=== PATIENT | female | born 1985 | race Caucasian/White ===

== ENCOUNTER 2019-08-05 23:48 | Inpatient (IN) | payer OTHER ==
--- OUTSIDE RECORDS SUMMARY | ~2019-08-05 | XMS | Clinical Summary ---
Demographics + + + | Address | [address] | | | [place] [address] | + + + | Home Phone | | + + + | Preferred Language | Unknown | + + + | Marital Status | | + + + | Tenriism Affiliation | Unknown | + + + | Race | Unknown | + + + | Ethnic Group | Unknown | + + + Author + + + | Author | [facility] | | | and [place] | + + + | Organization | [facility] | | | and [place] | + + + | Address | Unknown | + + + | Phone | Unavailable | + + + Support + + +---------+ + | Name | Relationship | Address | Phone | + + +---------+ + | Mary Otero | NANCY | Unknown | | + + +---------+ + Care Team Providers + +------+ + | Care Can Solderer Name | Role | Phone | + +------+ + | Micheal Colon MD | PCP | | + +------+ + Allergies No Known Allergies Medications + + + +---------+------+------+-------+ | Medication | Sig | Dispensed | Refills | Star | End | Statu | | | | | | t | Date | s | | | | | | Date | | | + + + +---------+------+------+-------+ | | Take 1 tablet by | | 0 | | | Activ | | multivitamin tablet | mouth Daily. | | | | | e | + + + +---------+------+------+-------+ | levothyroxine | Take 175 mcg by | | 0 | | | Activ | | (SYNTHROID, | mouth every morning | | | | | e | | LEVOTHROID) 100 mcg | (before breakfast). | | | | | | | tablet | | | | | | | + + + +---------+------+------+-------+ | OMEPRAZOLE PO | Take 20 mg by mouth | | 0 | | | Activ | | | Daily. | | | | | e | + + + +---------+------+------+-------+ | hydrOXYzine | Take 1 capsule by | 20 | 0 | 04/1 | | Activ | | pamoate (VISTARIL) | mouth 3 times daily | capsule | | 7/20 | | e | | 25 mg capsule | as needed for Other | | | 20 | | | | | (Pain). | | | | | | + + + +---------+------+------+-------+ | Ranitidine HCl | Take 2 tablets by | | 0 | | 04/1 | Disco | | (RANITIDINE 75 PO) | mouth 2 times daily. | | | | 7/20 | ntinu | | | | | | | 20 | ed | | | | | | | | (Ther | | | | | | | | apy | | | | | | | | compl | | | | | | | | eted) | + + + +---------+------+------+-------+ | docusate sodium | Take 1-2 capsules by | 30 | 1 | 01/0 | 04/1 | Disco | | (COLACE) 100 mg | mouth Twice daily | capsule | | 2/20 | /20 | ntinu | | capsule | as needed for | | | 19 | 20 | ed | | | Constipation. | | | | | (Ther | | | | | | | | apy | | | | | | | | compl | | | | | | | | eted) | + + + +---------+------+------+-------+ | | Take 1-2 tablets by | 15 | 0 | 01/0 | 04/1 | Disco | | HYDROcodone-acetamin | mouth every 6 hours | tablet | | 2/20 | 7/20 | ntinu | | ophen (NORCO) 5-325 | as needed for Pain. | | | 19 | 20 | ed | | mg per tablet | | | | | | (Ther | | | | | | | | apy | | | | | | | | compl | | | | | | | | eted) | + + + +---------+------+------+-------+ | ibuprofen | Take 1 tablet by | 30 | 1 | 01/0 | 04/ | Disco | | (ADVIL,MOTRIN) 600 | mouth every 6 hours | tablet | | 2/20 | 7/20 | ntinu | | MG tablet | as needed for Pain. | | | 19 | 20 | ed | | | | | | | | (Ther | | | | | | | | apy | | | | | | | | compl | | | | | | | | eted) | + + + +---------+------+------+-------+ Active Problems + + + | Problem | Noted Date | + + + | (spontaneous vaginal delivery) | 03/27/2018 | + + + | Hypothyroidism | 03/26/2018 | + + + | Term - PARESH 03/27/2018 | 03/26/2018 | + + + | Rheumatoid arthritis | 01/08/2014 | + + + + + | Overview: Controlled by Diet & Lifestyle. Not currently on | | medications when (as of 2017)H/O Etanercept use | + + + + + | Prolonged latent phase of labor | 07/03/2013 | + + + + + + + | | Estimated Date of Delivery | Comments | + + + + | Yes | 08/11/2019 | Based on Other Basis | + + + + Encounters +--------+ + + + + | Date | Type | Specialty | Care Team | Description | +--------+ + + + + | 07/10/ | Hospital | Obstetrics and | Susan Simental | | | 2019 | Encounter | Gynecology | DO Latonya | | +--------+ + + + + from Last 3 Months Social History + +-------+ +--------+------+ | Tobacco Use | Types | Packs/Day | Years | Date | | | | | Used | | + +-------+ +--------+------+ | Never Smoker | | | | | + +-------+ +--------+------+ + +---+---+---+ | Smokeless Tobacco: | | | | | Never Used | | | | + +---+---+---+ + + +---------+ + | Alcohol Use | Drinks/Week | oz/Week | Comments | + + +---------+ + | No | | | | + + +---------+ + + + + + | | Estimated Date of Delivery | Comments | + + + + | Yes | 08/11/2019 | Based on Other Basis | + + + + + + + | Sex Assigned at | Date Recorded | | | | + + + | Not on file | | + + + + + + + | Job Start Date | Occupation | Industry | + + + + | Not on file | Not on file | Not on file | + + + + + + + + | Travel History | Travel Start | Travel End | + + + + + + | No recent travel history available. | + + Last Filed Vital Signs + + + + + | Vital Sign | Reading | Time Taken | Comments | + + + + + | Blood Pressure | 124/85 | 07/11/2019 12:43 PM | | | | | PDT | | + + + + + | Pulse | 110 | 07/11/2019 12:43 PM | | | | | PDT | | + + + + + | Temperature | 36.5 C (97.7 F) | 07/11/2019 12:43 PM | | | | | PDT | | + + + + + | Respiratory Rate | 18 | 07/11/2019 12:43 PM | | | | | PDT | | + + + + + | Oxygen Saturation | 100% | 07/11/2019 12:43 PM | | | | | PDT | | + + + + + | Inhaled Oxygen | - | - | | | Concentration | | | | + + + + + | Weight | 86.2 kg (190 lb) | 03/26/2018 3:13 AM | | | | | PST | | + + + + + | Height | 162.6 cm (5' 4") | 03/26/2018 3:13 AM | | | | | PST | | + + + + + | Body Mass Index | 32.61 | 03/26/2018 3:13 AM | | | | | PST | | + + + + + Plan of Treatment + + + + + | Health Maintenance | Due Date | Last Done | Comments | + + + + + | Vaccine: | | | | | Dtap/Tdap/Td (1 - | 5 | | | | Tdap) | | | | + + + + + | Cervical Cancer | | | | | Screening (Pap) | 4 | | | + + + + + | Vaccine: Influenza | | | | | (Season Ended) | 0 | | | + + + + + Procedures + +--------+ + + + | Procedure Name | Priori | Date/Time | Associated Diagnosis | Comments | | | ty | | | | + +--------+ + + + | URINALYSIS | STAT | 07/11/2019 | | Results for this | | | | 12:48 PM | | procedure are in the | | | | PDT | | results section. | + +--------+ + + + from Last 3 Months Results Urinalysis (07/11/2019 12:48 PM PDT) + + + + + + | Component | Value | Ref Range | Performed | Pathologist | | | | | At | Signature | + + + + + + | Color, | Yellow | Light Yellow, | [facility] | | | Urine | | Yellow, Straw | [facility] | | | | | | [facility] | | | | | | [facility] - | | | | | | LABORATORY | | + + + + + + | Clarity | Clear | Clear | [facility] | | | | | | [facility] | | | | | | MED[facility] | | | | | | C[facility] - | | | | | | LABORATORY | | + + + + + + | pH, Urine | 6.0 | 5.0 - 8.0 | [facility] | | | | | | [facility] | | | | | | [facility] | | | | | | C[facility] - | | | | | | LABORATORY | | + + + + + + | Specific | 1.006 | 1.001 - 1.030 | [facility] | | | [place], | | | [facility] | | | Urine | | | MEDICAL | | | | | | CENTER - | | | | | | LABORATORY | | + + + + + + | Protein, | Negative | Negative | [facility] | | | Urine | | | [facility] | | | | | | MEDICAL | | | | | | CENTER - | | | | | | LABORATORY | | + + + + + + | Blood, | Negative | Negative | [facility] | | | Urine | | | [facility] | | | | | | MEDICAL | | | | | | CENTER - | | | | | | LABORATORY | | + + + + + + | Glucose, | Negative | Negative | [facility] | | | Urine | | | [facility] | | | | | | MEDICAL | | | | | | CENTER - | | | | | | LABORATORY | | + + + + + + | Ketones, | Trace (A) | Negative | [facility] | | | Urine | | | [facility] | | | | | | MEDICAL | | | | | | CENTER - | | | | | | LABORATORY | | + + + + + + | Bilirubin, | Negative | Negative | [facility] | | | Urine | | | [facility] | | | | | | MEDICAL | | | | | | CENTER - | | | | | | LABORATORY | | + + + + + + | Nitrite, | Negative | Negative | [facility] | | | Urine | | | [facility] | | | | | | MED[facility] | | | | | | CENTER - | | | | | | LABORATORY | | + + + + + + | Leukocyte | Negative | Negative | [facility] | | | Esterase, | | | [facility] | | | Urine | | | MEDICAL | | | | | | CENTER - | | | | | | LABORATORY | | + + + + + + | Urobilinoge | Negative | 0.2 mg/dL, 1.0 | [facility] | | | n, Urine | | mg/dL, Negative | [facility] | | | | | | MEDICAL | | | | | | CENTER - | | | | | | LABORATORY | | + + + + + + + + | Specimen | + + | Urine - Urine | | specimen obtained by | | clean catch | | procedure (specimen) | + + + + + + + | Performing | Address | City/State/Zipcode | Phone Number | | Organization | | | | + + + + + | [facility] | [address] | [place] | [phone] | | [facility] | | [address] | | | - LABORATORY | | | | + + + + + from Last 3 Months Insurance + +--------+ +--------+ +---------+------+ | Payer | Benefi | Subscriber | Effect | Phone | Address | Type | | | t Plan | ID | nevni | | | | | | / | | Dates | | | | | | Group | | | | | | + +--------+ +--------+ +---------+------+ | [facility] | PHP | [id number] | 03/26/19 | [phone] | | PPO | | PLAN | PERSON | | 20-Pre | 5 | | | | | AL | | sent | | | | | | OPEN | | | | | | | | OPTION | | | | | | + +--------+ +--------+ +---------+------+ + +--------+ +--------+ + + | Guarantor Name | Accoun | Relation to | Date | Phone | Billing Address | | | t Type | Patient | of | | | | | | | | | | + +--------+ +--------+ + + | Yosef Otero | Person | Self | [birth year] | [address] | | | al/Fam | | 1986 | [phone] | [place] [address] | | | silverio | | | 5 (Home) | | + +--------+ +--------+ + + Advance Directives + + + + + | Type | Date Recorded | Patient | Explanation | | | | New Accounts Clerk | | + + + + + | Power of | | | | | Pulverizer Mill Operator | | | | + + + + + | Advance | 03/27/2018 10:59 | | | | Directive | AM | | | + + + + + + + + + + | Code Status | Date | Date | Comments | | | Activated | Inactivated | | + + + + + | Full Code | 03/26/2018 | 03/26/2018 | | | | 8:57 AM | 6:37 PM | | + + + + +
--- OUTSIDE RECORDS SUMMARY | ~2019-08-05 | XMS | Encounter Summary ---
Demographics + + + | Address | [address] | | | [place] [address] | + + + | Home Phone | | + + + | Preferred Language | Unknown | + + + | Marital Status | | + + + | Baptist Affiliation | Unknown | + + + | Race | Unknown | + + + | Ethnic Group | Unknown | + + + Author + + + | Author | [facility] | | | and [place] | + + + | Organization | [facility] | | | and [...] Team Providers + +------+ + | Care Service Unit Operator Oil Well Name | Role | Phone | + +------+ + | Kamlesh Lopez MD | PCP | | + +------+ + Reason for Visit Auth/Cert +--------+--------+ + + + + | Status | Reason | Specialty | Diagnoses / | Referred By | Referred To | | | | | Procedures | Contact | Contact | +--------+--------+ + + + + | Closed | | | | | | +--------+--------+ + + + + Encounter Details +--------+ + + + + | Date | Type | Department | Care Team | Description | +--------+ + + + + | 07/03/ | Anesthesia | [facility] | Mayito Scott | | | 2013 | Event | [facility] | MD Neil [address] | | | | | [address] | [facility] | | | | | [place], | [place] [address] | | | | | [place] [address] | [phone] | | | | | [phone] | | | +--------+ + + + + Anesthesia Record + + + + + | Procedure Name | Responsible | Anesthesia Start | Anesthesia Stop Time | | | Anesthesiologist | Time | | + + + + + | labor epidural | Tor Neil Scott, | 07/03/13 0733 | 07/03/13 1351 | | | MD | | | + + + + + +----+---+ + + | Da | T | Event | Comment | | te | i | | | | | m | | | | | e | | | +----+---+ + + | 04 | 0 | | | | /1 | 7 | | | | 0/ | 3 | | | | 20 | 3 | | | | 14 | | | | +----+---+ + + | | 0 | An Start | Reassessment prior to anesthesia induction/procedure. | | | 7 | | | | | 3 | | | | | 3 | | | +----+---+ + + | | 0 | Epi/spinal | | | | 7 | Stop | | | | 4 | | | | | 2 | | | +----+---+ + + | | 0 | Epidural | | | | 7 | Bolus | | | | 4 | | | | | 3 | | | +----+---+ + + | | 0 | Epidural | | | | 7 | Infusion | | | | 4 | Started | | | | 5 | | | +----+---+ + + | | 0 | Out of OR | | | | 7 | Device Stop | | | | 4 | | | | | 6 | | | +----+---+ + + | | 1 | Quick Note | Called by RN that pt had two hours of good pain control, over | | | 2 | | past two hours has been having increasing bilat pain since | | | 1 | | pitocin started | | | 8 | | | +----+---+ + + | | 1 | Baby Deliv | | | | 3 | | | | | 5 | | | | | 1 | | | +----+---+ + + | | 1 | An Stop | Patient handed off to recovery nurse. | | | 5 | | | | | 1 | | | +----+---+ + + +------+ | Meds | +------+ + +---------+ | Name | Total | + +---------+ | lidocaine 1.5%-EPINEPHrine | 3 mL | | 1:200,000 (PF) | | + +---------+ | lidocaine 2% (Epidural) | 5 mL | + +---------+ | fentaNYL (Epidural) | 100 mcg | + +---------+ | bupivacaine 0.25% + epi 1:200k | 5 mL | | (Epidural) | | + +---------+ + + | No agents on file. | + + + + | No blood administrations on file. | + + +--------+ + + + | Type | Details | Placement | Removal | +--------+ + + + | [READ | 07/03/13714; expected removal | 07/03/13714 by | 07/04/13 08 by Kacey | | ONLY] | post discharge; 07/04/13; 799 | Shwetha Murray RN | Brigid Mckenzie RN | | | | | | | Periph | | | | | eral | | | | | IV - | | | | | Single | | | | | Lumen | | | | | | | | | +--------+ + + + | Epidur | 07/03/13; 0742; tip intact; | 07/03/13 0742 by Tor | 07/03/13 1411 by | | al/Spi | 07/03/13; 1411 | Neil Scott MD | [facility] | | nal | | | | +--------+ + + + | Urethr | 07/03/13; 0845; other (see | 07/03/13 0845 by | 07/03/13 1339 by | | al | comments) (epidural); indwelling | [facility] | [facility] | | Cathet | double lumen catheter; 100% | | | | er | silicone; 16; 1; 10; 10; none; | | | | | urethral catheter removed; short | | | | | term use; 07/03/13; 1339 | | | +--------+ + + + documented in this encounter Social History + +-------+ +--------+------+ | Tobacco Use | Types | Packs/Day | Years | Date | | | | | Used | | + +-------+ +--------+------+ | Never Assessed | | | | | + +-------+ +--------+------+ + + + | Sex Assigned at [...] recent travel history available. | + + documented as of this encounter Last Filed Vital Signs + +---------+ + + | Vital Sign | Reading | Time Taken | Comments | + +---------+ + + | Blood Pressure | 120/56 | 07/03/2013 7:45 AM | | | | | PDT | | + +---------+ + + | Pulse | - | - | | + +---------+ + + | Temperature | - | - | | + +---------+ + + | Respiratory Rate | - | - | | + +---------+ + + | Oxygen Saturation | 100% | 07/03/2013 7:44 AM | | | | | PDT | | + +---------+ + + | Inhaled Oxygen | - | - | | | Concentration | | | | + +---------+ + + | Weight | - | - | | + +---------+ + + | Height | - | - | | + +---------+ + + | Body Mass Index | - | - | | + +---------+ + + documented in this encounter Plan of Treatment Not on filedocumented as of this encounter Procedures + +--------+ + + + | Procedure Name | Priori | Date/Time | Associated Diagnosis | Comments | | | ty | | | | + +--------+ + + + | ANESTHESIA BLOCK | Routin | 07/03/2013 | | Results for this | | | e | 12:50 PM | | procedure are in the | | | | PDT | | results section. | + +--------+ + + + documented in this encounter Results ANESTHESIA BLOCK (07/03/2013 12:50 PM PDT) + + + | Narrative | Performed At | + + + | Mayito Scott MD 07/03/2013 12:50 Procedure Note | | | Anesthesia Block Procedure: Epidural, L3-4, Approach: Midline | | | Technique: Catheter, Incremental Injection Incremental Injection | | | Volume: 5. Indication: Patient in Labor. Block requested by | | | surgeon or patient. Pre-procedure Events: Patient Identified, | | | Pre-op Evaluation Completed, Airway Assessed, Risks and Benefits | | | Discussed, Procedure Consent Obtained and Timeout Performed. | | | Patient Positioning: Sitting Prep: ChloraPrep used. Skin Local | | | Anesthetic: Lidocaine 1% Needle: 17 G Tuohy (9 cm). Loss of | | | resistance depth: 6.5 cm ELSA - Saline Catheter depth at skin: 10.5 cm | | | Ease: Easy Attempts: 1 Dressings: Sterile Dressing | | | Note: Negative Blood Aspirated, CSF Return, Paresthesia and Test | | | Dose. Electronically signed by: Mayito Scott MD 07/03/2013 12:49 | | | | | + + + + + | Procedure Note | + + | Mayito Scott MD - 07/03/2013 12:49 PM PDT Procedure NoteAnesthesia | | BlockProcedure: Epidural, L3-4, Approach: Midline Technique: Catheter, Incremental | | Injection Incremental Injection Volume: 5. Indication: Patient in Labor. Block | | requested by surgeon or patient. Pre-procedure Events: Patient Identified, Pre-op | | Evaluation Completed, Airway Assessed, Risks and Benefits Discussed, Procedure Consent | | Obtained and Timeout Performed.Patient Positioning: SittingPrep: ChloraPrep used. Skin | | Local Anesthetic: Lidocaine 1%Needle: 17 G Tuohy (9 cm). Loss of resistance depth: 6.5 | | cm ELSA - SalineCatheter depth at skin: 10.5 cmEase: EasyAttempts: 1 Dressings: | | Sterile Dressing Note: Negative Blood Aspirated, CSF Return, Paresthesia and Test Dose. | | Electronically signed by: Mayito Scott MD 07/03/2013 12:49 | |Needle: 17 G Tuohy (9 cm). | |Loss of resistance depth: 6.5 cm ELSA - Saline | |Catheter depth at skin: 10.5 cm | | | |Ease: Easy | |Attempts: 1 | |Dressings: Sterile Dressing | |Note: Negative Blood Aspirated, CSF Return, Paresthesia and Test Dose. | |Electronically signed by: Mayito Scott MD 07/03/2013 12:49 | + + documented in this encounter Visit Diagnoses Not on filedocumented in this encounter Administered Medications + +--------+ +-------+------+------+ | Medication Order | MAR | Action | Dose | Rate | Site | | | Action | Date | | | | + +--------+ +-------+------+------+ | bupivacaine 0.25%-EPINEPHrine | Given | 07/04/19 | 5 mLs | | | | 1:200,000 (PF) injection | | 14 12:15 | | | | | EPIDURAL, PRN, Starting Lisa | | PM PDT | | | | | 07/03/13 at 1215, Anesthesia | | | | | | | Intra-op | | | | | | + +--------+ +-------+------+------+ +---+---+ | | | +---+---+ + +-------+ +---------+---+---+ | fentaNYL injection EPIDURAL, | Given | 07/04/19 | 100 mcg | | | | PRN, Pain, Starting Lisa 07/03/13 | | 14 12:16 | | | | | at 1216, Anesthesia Intra-op | | PM PDT | | | | + +-------+ +---------+---+---+ +---+---+ | | | +---+---+ + +-------+ +-------+---+---+ | lidocaine (PF) 2% injection | Given | 07/04/19 | 5 mLs | | | | EPIDURAL, PRN, Starting Lisa | | 14 7:43 | | | | | 07/03/13 at 0743, Anesthesia | | AM PDT | | | | | Intra-op | | | | | | + +-------+ +-------+---+---+ +---+---+ | | | +---+---+ + +-------+ +-------+---+---+ | lidocaine 1.5%-EPINEPHrine | Given | 07/04/19 | 3 mLs | | | | 1:200,000 (PF) injection | | 14 7:42 | | | | | EPIDURAL, PRN, Starting Lisa | | AM PDT | | | | | 07/03/13 at 0742, Anesthesia | | | | | | | Intra-op | | | | | | + +-------+ +-------+---+---+ +---+---+ | | | +---+---+ documented in this encounter"
--- OUTSIDE RECORDS SUMMARY | ~2019-08-05 | XMS | Encounter Summary ---
Demographics + + + | Address | [address] | | | [place] [address] | + + + | Home Phone | | + + + | Preferred Language | Unknown | + + + | Marital Status | | + + + | Christianity Affiliation | Unknown | + + + | Race | Unknown | + + + | Ethnic Group | Unknown | + + + Author + + + | Author | [facility] | | | and [place] | + + + | Organization | [facility] | | | and [...] Team Providers + +------+ + | Care Automatic Hemmer Name | Role | Phone | + +------+ + | Micheal Colon MD | PCP | | + +------+ + Reason for Visit + + + | Reason | Comments | + + + | Contractions | | + + + Encounter Details +--------+ + + + + | Date | Type | Department | Care Team | Description | +--------+ + + + + | 04/17/ | Hospital | [facility] | Susan Simental | | | 2020 | Encounter | [facility] | Latonya, DO [address] | | | | [address] | | | | | [place], | [place] [address] | | | | | [place] [address] | [phone] | | | | | [phone] | | | +--------+ + + + + Social History + +-------+ +--------+------+ | Tobacco [...] + + +---------+ + + + + | Sex Assigned [...] this encounter Last Filed Vital Signs + + + [...] + + + + | Weight | - | - | | + + + + + | Height | - | - | | + + + + + | Body Mass Index | - | - | | + + + + + documented in this encounter Discharge Instructions Instructions Jacinda Bartholomew RN - 07/11/2019Discharge Education for the Undelivered Patient You can use the following list as a guide to help you know when to call your provider or re turn to the hospital. Labor Contractions (labor pains) every 5 minutes or less, lasting 60 seconds or more Contractions become stronger Bag of molina broken or leaking fluid from the vagina Labor (more than 3 weeks before your due date) Contractions (labor pains) that occur more than 4 times per hour (every 15 minutes), la sting 30 seconds or more, for 2 hours Backache or pelvic pressure Bag of molina broken or leaking fluid from the vagina Movement Counting Starting at 7 months (28 weeks) Decreased (less than 10 movements in 2 hours) Other Reasons to Call Constant headache Changes in vision Sudden increase in swelling, especially rapid weight gain chiefly in your face and/ or hands Constant abdominal (belly) pain Bright red vaginal bleeding or passing enough clots to need a pad Temperature over 100.4 (38 C) documented in this encounter Medications at Time of Discharge + + + +---------+ + + | Medication | Sig | Dispensed | Refills | Start | End Date | | | | | | Date | | + + + +---------+ + + | hydrOXYzine | Take 1 capsule by | 20 | 0 | 07/11/19 | | | pamoate (VISTARIL) | mouth 3 times daily | capsule | | 20 | | | 25 mg capsule | as needed for Other | | | | | | | (Pain). | | | | | + + + +---------+ + + | levothyroxine | Take 175 mcg by | | 0 | | | | (SYNTHROID, | mouth every morning | | | | | | LEVOTHROID) 100 mcg | (before breakfast). | | | | | | tablet | | | | | | + + + +---------+ + + | OMEPRAZOLE PO | Take 20 mg by mouth | | 0 | | | | | Daily. | | | | | + + + +---------+ + + | | Take 1 tablet by | | 0 | | | | multivitamin tablet | mouth Daily. | | | | | + + + +---------+ + + documented as of this encounter Progress Notes Chong Campbell MD - 07/11/2019 2:31 PM PDT Labor & Delivery Triage Note Yosef Otero is a 33 y.o. OB History 5 Para 3 Term 2 AB 1 Living 3 SAB 1 TAB Ectopic Molar Multiple 0 Live Births 2 at 35w4d Reason for evaluation: contractions Subjective: Patient reports intermittent contractions. Mild to moderate intensity. Reports several in an hour then reduces to only couple in an hour. Patient lives far away however and reports no contractions like this before. Normal otherwise. No leaking bleeding, active fetus. No symptoms of infection. Objective Vitals: 07/11/19 1243 Pulse: 110 Resp: 18 Temp: 36.5 C (97.7 F) General: no acute distress Abdomen: gravid non-tender FHR Assessment Baseline: 130 Variability: moderate Accels: present Decels: absent CAT: 1 Doyline: no regular contractions noted on toco VAGINAL Exam Dilation: /-3 UA negative. Assessment: 33 y.o. at 35w4d Reported contractions. No evidence of active or labor at this time Reassuring status Given she lives far from hospital will observe for 2 hours. If still no evidence of labor will DC home with precautions. Electronically Signed by: Chong Campbell MD MD 07/11/2019 2:31 PM documen susana in this encounter Plan of Treatment Not [...] + + documented in this encounter Results Urinalysis (07/11/2019 12:48 PM PDT) + [...] - 1.030 | [facility] | | | [place], | | | [facility] | | [...] | | | Urine | | | [facility] | | | | | | MEDICAL | | | | | | CENTER - | | | | | | LABORATORY | | + + + + + + | Leukocyte | Negative | Negative | [facility] | | | Esterase, | | | [facility] | | | Urine | | | MEDICAL | | | | | | CENTER - | | | | | | LABORATORY | | + + + + + + | Urobilinoge | Negative | 0.2 mg/dL, 1.0 | [facility] | | | n, Urine | | mg/dL, Negative | [facility] | | | | | | [...] [address] | [place] | [phone] | | [facility] | | [address] | | | - LABORATORY | | | | + + + + + documented in this encounter Visit Diagnoses Not on filedocumented in this encounter"
--- OUTSIDE RECORDS SUMMARY | ~2019-08-05 | XMS | Encounter Summary ---
Demographics + + + | Address | [address] | | | [place] [address] | + + + | Home Phone | | + + + | Preferred Language | Unknown | + + + | Marital Status | | + + + | Latter Day Affiliation | Unknown | + + + | Race | Unknown | + + + | Ethnic Group | Unknown | + + + Author + + + | Author | [facility] | | | and [place] | + + + | Organization | [facility] | | | [...] Team Providers + +------+ + | Care Wireless Sales Associate Name | Role | Phone | + +------+ + | Micheal Colon MD | PCP | | + +------+ + Reason for Referral Evaluate & Treat (Routine) +--------+ + + + + + | Status | Reason | Specialty | Diagnoses / | Referred By | Referred To | | | | | Procedures | Contact | Contact | +--------+ + + + + + | Closed | Specialty | | Diagnoses | Celena, | | | | Services | Services | | DO Bri | | | | Required | | (spontaneous | [address] | | | | | | vaginal | [address] [place] | | | | | | delivery) | [place], [place] | | | | | | Hypothyroidi | [address] | | | | | | sm, | Phone: | | | | | | unspecified | [phone] | | | | | | type | Fax: | | | | | | | [phone] | | +--------+ + + + + + Reason for Visit + + + | Reason | Comments | + + + | Contractions | | + + + Auth/Cert +--------+--------+ + + + + | Status | Reason | Specialty | Diagnoses / | Referred By | Referred To | | | | | Procedures | Contact | Contact | +--------+--------+ + + + + | | | | | | | +--------+--------+ + + + + Encounter Details +--------+ + + + + | Date | Type | Department | Care Team | Description | +--------+ + + + + | 03/26/ | Hospital | [facility] | Chong Campbell | (spontaneous | | 2019 - | Encounter | [facility] | Paulino May MD | vaginal delivery) | | | | [address] | [address] | (Primary Dx); | | 03/27/ | | [place] | [place] | Hypothyroidism, | | 2019 | | [id number] | [id number] | unspecified type | | | | [phone] | | | | | | | Susan Simental | | | | | | DO Latonya [address] | | | | | | [place] | | | | | | [address] | | | | | | | [...] + + + | Blood Pressure | 109/67 | 03/27/2018 4:50 PM | | | | | PST | | + + + + + | Pulse | 86 | 03/27/2018 4:50 PM | | | | | PST | | + + + + + | Temperature | 36.9 C (98.4 F) | 03/27/2018 4:50 PM | | | | | PST | | + + + + + | Respiratory Rate | 18 | 03/27/2018 4:50 PM | | | | | PST | | + + + + + | Oxygen Saturation | 98% | 03/27/2018 4:50 PM | | | | | PST | [...] + + documented in this encounter Discharge Summaries Bri Dallas DO - 03/27/2018 8:16 AM PSTFormatting of this note might be different fro m the original. DISCHARGE SUMMARY-OBSTETRICS Date of Admission: 03/26/2018 Date of Discharge: 03/27/2018 ATTENDING CLINICIAN: Bri Dallas DO PRIMARY STATION EXAMINER: Micheal Colon MD HISTORY OF PRESENT ILLNESS 32 y.o. 39w6d presented in early active labor and required augmentation of labor. HOSPITAL COURSE: Yosef Otero is a 32 y.o.-year-old, now female (Estimated Date of Delivery: 03/27/18) who had a delivered by Vaginal, Spontaneous Delivery . At 03/26/2018 1732 Yosef ore a living female 3.708 kg (8 lb 2.8 oz) infant, . scores were 8 /9 at one and five minutes respectively. Estimated Blood loss was 50mL Her labor course was uncomplicated. Her course was unremarkable. Pain was well controlled and she was ambulating we ll without any difficulty. She had normal bowel an urinary function. Her vital signs were stable and afebrile. Nursing was going well. She was discharged home in stable condition . She was given written post operative instructions in regards to her activity level and hotl itations. DISPOSITION: home CONDITION UPON DISCHARGE: stable DISCHARGE MEDICATIONS: Discharge Medications New Medications Details docusate sodium 100 mg capsule Take 1-2 capsules by mouth Twice daily as needed for Constipation. aka: COLACE HYDROcodone-acetaminophen 5-325 mg per tablet Take 1-2 tablets by mouth every 6 hours as needed for Pain. aka: NORCO ibuprofen 600 MG tablet Take 1 tablet by mouth every 6 hours as needed for Pain. aka: ADVIL,MOTRIN Unchanged Medications Details levothyroxine 100 mcg tablet Take 175 mcg by mouth every morning (before breakfast). aka: SYNTHROID 27-0.8 mg multivitamin tablet Take 1 tablet by mouth Daily. RANITIDINE 75 PO Take 2 tablets by mouth 2 times daily. There is no immunization history for the selected administration types [facility] FOLLOWUP: 6 weeks PRECAUTIONS: Pelvic rest for 6 weeks DIET: Regular Electronically Signed by: Bri Dallas DO 03/27/2018 8:16 documented in this en counter Discharge Instructions Instructions Bri Dallas DO - 03/27/2018Formatting of this note might be different fro m the original. After a Vaginal After having a baby, your body may be very tired. It can take time to recover from a vagina l delivery. You may stay in the hospital or center from 1 to 4 days.In some cases, y ou may be able to go home the same day. Right after the delivery Your temperature and blood pressure will be taken until they are stable. A nurse or other h ealthcare provider will observe you as you rest. You may have afterbirth pains. These are cr amps caused by the uterus shrinking. Sanitary pads are used to soak up the discharge of the uterine lining. To make sure that you aren t bleeding too much, the pad will be checked. A nd the firmness of your uterus will be checked. To do this, a nurse will gently push down on your stomach. If you had anesthesia, you ll be watched closely until you can feel and mov e your toes. If you have perineal pain (pain between the vagina and anus), an ice pack can h elp. care While still in the hospital or center, you ll learn how to hold and feed your baby. You willalso be given instructions on how to care for your baby. This includes bathing an d feeding. Preparing to go home You may be anxious to go home as soon as possible. Before you and your baby go home, a [facility] will check to be sure you are healthy enough to take care of your baby and y ourself. You re ready to go home when: You can walk to the bathroom and use the bathroom without help. You can eat solid food and swallow pills (if needed). You have no sign of infection or other health problems, including fever. You have adequate pain control. Your bleeding isn't excessive. You are able to care for your and are emotionally stable. Before leaving the hospital or center, you ll be given written instructions for rand e self-care after vaginal delivery. Be sure to follow these instructions carefully. If you h ave questions or concerns, talk about them now. If you have stitches You may have received stitches in the skin near your vagina. The stitches might have closed an episiotomy (an incision that enlarges the opening of the vagina). Or you may have needed stitches to repair torn skin. Either way, your stitches should dissolve within weeks. Until then, you can help reduce discomfort, aid healing, and reduce your risk of infection by john ping the stitches clean. These tips can help: Gently wipe from front to back after you urinate or have a bowel movement. After wiping, spray warm water on the area. Or you can have a sitz bath. This means sitt ing in a tub with a few inches of water in it. Then pat the area dry or use a hairdryer on a cool setting. Do not use soap or any solution except water on the area. You can take a shower unless told not to. Change sanitary pads at least every [address] cold or heat packs on the area as directed by your healthcare providers or nurses. Keep a thin towel between the pack and your skin. Sit on firm seats so the stitches pull less. follow-up Schedule a follow-up exam with your healthcare provider for about 6 weeks after d cat. During this exam, your uterus and vaginal area will be checked. Contact your health care provider if you think you or your baby are having any problems. When to call your healthcare provider Call your healthcare provider right away if you have: A fever of 100.4F (38.0C) or higher Bleeding that needs a new sanitary pad after an hour, or large blood clots Pain in your vagina that gets worse and isn't relieved with medicine Swelling, discharge, or increased pain from vaginal tear or episiotomy Burning, pain, red streaks, or lumpy areas in your breasts that may be accompanied by fl u-like symptoms Cracks, blisters, or blood on your nipples Burning or pain when you urinate Nausea or vomiting Dizziness or fainting Feelings of extreme sadness or anxiety, or a feeling that you don t want to be with yo ur baby Belly pain that isn t relieved with medicine Vaginal discharge that has a bad odor No bowel movement for 5 days Painful urination, or inability to control urination Redness, warmth, or pain in the lower leg Chest pain Date Last Reviewed: 02/23/201719992449-5076 [employer] [place]. [address] [place] [address], [place] [address]. All righ ts reserved. This information is not intended as a substitute for professional medical care. Always follow your healthcare professional's instructions. documented in this encounter Medications at Time [...] + + + +---------+ + + | docusate sodium | Take 1-2 capsules by | 30 | 1 | 03/27/19 | | | (COLACE) 100 mg | mouth Twice daily | capsule | | 19 | 0 | | capsule | as needed for | | | | | | | Constipation. | | | | | + + + +---------+ + + | | Take 1-2 tablets by | 15 | 0 | 03/27/19 | | | HYDROcodone-acetamin | mouth every 6 hours | tablet | | 19 | 0 | | ophen (NORCO) 5-325 | as needed for Pain. | | | | | | mg per tablet | | | | | | + + + +---------+ + + | ibuprofen | Take 1 tablet by | 30 | 1 | 03/27/19 | | | (ADVIL,MOTRIN) 600 | mouth every 6 hours | tablet | | 19 | 0 | | MG tablet | as needed for Pain. | | | | | + + + +---------+ + + | Ranitidine HCl | Take 2 tablets by | | 0 | | | | (RANITIDINE 75 PO) | mouth 2 times daily. | | | | 0 | + + + +---------+ + + documented as of this encounter Progress Notes Bri Dallas DO - 03/27/2018 8:17 AM PSTObstetrics Progress Note Subjective: Patient doing well without any concerns. She did have some cramping last night that was si gnificant and felt like was not covered with her Motrin dose after about 3 hours. She recei tyshawn one dose of [place] with good pain control since that time. States lochia is very mild an d cramping is well controlled if she stays on the dose of Motrin as scheduled. She is tolera ting PO diet without nausea or vomiting and voiding without pain or difficulty. : well with good latch Ambulating: Without any difficulty or dizziness Patient requests discharge home Maternal VS's: BP: 97/63 Pulse: 82 Temp: 36.9 C (98.4 F) Exam: General: No acute distress, baby at bedside Abdomen: Soft, non-tender, non-distended Fundus: Firm, below the umbilicus 2 finger breadths, no fundal tenderness Extremities: No calf tenderness, appropriate edema AssesmentPlan: Day #1 s/p normal augmented vaginal delivery recovering well stable for discharge Will send her home with a few [place] given her extra cramping symtpoms RH+/rubella immune d/c home with instructions and follow-up scheduled Hypothyroidism Continue Levothyroxine 175mcg daily Electronically Signed by: Bri Dallas DO 03/27/2018 8:18 Bri Ramos DO - 03/26/2018 1:30 PM PST Labor Progress Note Subjective: Patient comfortable with epidural in place. She is starting to feel some of h er contractions getting stronger. All midline pressure with contractions Maternal VS's: BP: 113/59, HR 87 FHR Assessment FHR: 130, moderate variability. No decels, positive accerlerations Uterine Activity (Last assessment) Method: TOCO (external toco transducer); Every 3-4 minutes, difficult to trace Vaginal Exam (Last assessment) SVE: Assessment/Plan: 32 y.o. 39w6d Epidural in place now, heart rate tracing category 1 AROM with clear fluid at 1210 Pitocin running, continue to titrate to maternal wellbeing. Anticipate normal spontaneous vaginal delivery Hypothyroidism Continue Levothyroxine 175mcg while inpatient Electronically Signed by: Bri Dallas DO 03/26/2018 13:30 Bri Ramos DO - 03/26/2018 12:12 PM PST Labor Progress Note Subjective: In room to discuss AROM with patient. Risks include but not limited to prolap se of umbilical cord or hand presentation, malpresentation or asynclitic presentation, small risk of infection, risk of scratch to head. Patient verbalized understanding and wis hes to proceed. AROM performed without complication with return of a good amount of clear a mniotic fluid. Maternal VS's: BP 130/64 Temp: 36.6 C (97.9 F) FHR Assessment FHR: 145, moderate variability. No decels, positive accerlerations Uterine Activity (Last assessment) Method: TOCO (external toco transducer); Every 3-4 minutes Vaginal Exam (Last assessment) SVE: /0 Assessment/Plan: 32 y.o. 39w6d Epidural in place now, heart rate tracing category 1 AROM with clear fluid at 1210 Plan on starting low dose pitocin, titrate to maternal wellbeing Anticipate normal spontaneous vaginal delivery Hypothyroidism Continue Levothyroxine 175mcg while inpatient Electronically Signed by: Bri Dallas DO 03/26/2018 12:12 Bri Ramos DO - 03/26/2018 11:14 AM PST Labor Progress Note Subjective: Patient comfortable with epidural. Called by nursing staff as fetus had a lat e deceleration of 3 minutes after placement of her epidural and patient was severely hypoten sive followed by a 1 minute deceleration. She has now received two doses of ephedrine. Fet al heart rate tracing now again category 1. Patient had intrauterine resuscitative efforts performed including oxygen supplementation, IV fluid bolus, and was moved to her left side. Maternal VS's: BP 130/64 Temp: 36.6 C (97.9 F) FHR Assessment FHR: 150, now after ephedrine dose is 170's, moderate variability. Uterine Activity (Last assessment) Method: TOCO (external toco transducer); Every 5-7 minutes Vaginal Exam (Last assessment) SVE: /-1 Assessment/Plan: 32 y.o. 39w6d Epidural in place now, had a hypotensive episode causing a late deceleration of 3 minutes followed by another, no s/p ephedrine 2 doses with good response. Once fetus returns to 15 minute tracing of category 2 FHR will plan on starting pitocin an d will plan on AROM, continue intrauterine resuscitative efforts as indicated for category 2 FHR tracing Anticipate normal spontaneous vaginal delivery Hypothyroidism Continue Levothyroxine 175mcg while inpatient Electronically Signed by: Bri Dallas DO 03/26/2018 11:30 documented in this en counter Plan of Treatment + + +--------+ + + | Name | Type | Priori | Associated Diagnoses | Order Schedule | | | | ty | | | + + +--------+ + + | Ambulatory referral | Outpatient | Routin | (spontaneous | 1 Occurrences | | to | Referral | e | vaginal delivery) | starting 03/27/2018 | | | | | Hypothyroidism, | until 03/26/2019 | | | | | unspecified type | | + + +--------+ + + documented as of this encounter Procedures + +--------+ + + + | Procedure Name | Priori | Date/Time | Associated Diagnosis | Comments | | | ty | | | | + +--------+ + + + | CBC NO DIFFERENTIAL | STAT | 03/26/2018 | | Results for this | | | | 9:04 AM | | procedure are in the | | | | PST | | results section. | + +--------+ + + + | TYPE AND SCREEN | Routin | 03/26/2018 | | Results for this | | | e | 9:04 AM | | procedure are in the | | | | PST | | results section. | + +--------+ + + + documented in this encounter Results Type and Screen (03/26/2018 9:04 AM PST) + + + + + + | Component | Value | Ref Range | Performed | Pathologist | | | | | At | Signature | + + + + + + | ABO | B | | [facility] | | | | [facility] | | | [facility] - | | | | | | [facility]LOOD BANK | | + + + + + + | Rh Type | Positive | | [facility] | | | | | [facility] | | | [facility] | | | [facility] - | | | | | | [facility]LOOD BANK | | + + + + + + | Antibody | Negative | | [facility] | | | Screen | | | [facility] | | | | | | [facility] | | | | | | [facility] - | | | | | | BLOOD BANK | | + + + + + + + + | Specimen | + + | Blood | + + + + + + + | Performing | Address | City/State/Zipcode | Phone Number | | Organization | | | | + + + + + | [facility] | [address] | [place] | | | [facility] | | [address] | | | - BLOOD BANK | | | | + + + + + CBC no Differential (03/26/2018 9:04 AM PST) + + + + + + | Component | Value | Ref Range | Performed | Pathologist | | | | | At | Signature | + + + + + + | WBC | 8.8 | 4.0 - 11.0 K/uL | [facility] | | | | | [facility] | | | | | | [facility] | | | | | | [facility] - | | | | | | LABORATORY | | + + + + + + | RBC | 4.19 | 3.70 - 5.20 | [facility] | | | | | M/uL | [facility] | | | | | | [facility] | | | | | | [facility] - | | | | | | LABORATORY | | + + + + + + | Hemoglobin | 11.1 (L) | 11.5 - 16.0 | [facility] | | | | | g/dL | [facility] | | | | | | [facility] | | | | | | C[facility] - | | | | | | LABORATORY | | + + + + + + | Hematocrit | 34.8 | 34.0 - 47.0 % | [facility] | | | | | | [facility] | | | | | | [facility] | | | | | | [facility] - | | | | | | LABORATORY | | + + + + + + | MCV | 83.1 | 83.0 - 101.0 fL | [facility] | | | | | | [facility] | | | | | | [facility] | | | | | | [facility] - | | | | | | LABORATORY | | + + + + + + | MCH | 26.5 (L) | 28.0 - 35.0 pg | [facility] | | | | | | [facility] | | | | | | [facility] | | | | | | [facility] - | | | | | | LABORATORY | | + + + + + + | MCHC | 31.9 (L) | 32.0 - 36.0 | [facility] | | | | | g/dL | [facility] | | | | | | [facility] | | | | | | [facility] - | | | | | | LABORATORY | | + + + + + + | RDW-CV | 12.5 | <15.0 % | [facility] | | | | | [facility] | | | [facility] | | [facility] | | | | | | [facility] - | | | | | | LABORATORY | | + + + + + + | RDW-SD | 38.2 | 35.1 - 46.3 fL | [facility] | | | | | | [facility] | | | | | | [facility] | | | | | | [facility] - | | | | | | LABORATORY | | + + + + + + | Platelet | 233 | 140 - 440 K/uL | [facility] | | | Count | | | [facility] | | | | | | [facility] | | | | | | CENTER - | | | | | | LABORATORY | | + + + + + + | MPV | 9.3 | 6.5 - 12.4 fL | [facility] | | | | | | [facility] | | | | | | [facility] | | | | | | CENTER - | | | | | | LABORATORY | | + + + + + + | % nRBC | 0 | 0 - 2 per 100 | [facility] | | | | | WBC's | [facility] | | | | | | MEDICAL | | | | | | CENTER - | | | | | | LABORATORY | | + + + + + + | Absolute | 0.00 | 0.00 - 0.01 | [facility] | | | nRBC | | K/uL | [facility] | [facility] | [facility] | | | | | | [facility] - | | | | | | LABORATORY | | + + + + + + + + | Specimen | + + | Blood | + + + + + + + | Performing | Address | City/State/Zipcode | Phone Number | | Organization | | | | + + + + + | [facility] | [address] | [place] | [phone] | | [facility] | | [address] | | | - LABORATORY | | | | + + + + + documented in this encounter Visit Diagnoses + + | Diagnosis | + + | (spontaneous vaginal delivery) - Primary Normal delivery | + + | Hypothyroidism, unspecified type | + + | Term - PARESH 03/27/2018 | + + documented in this encounter Administered Medications + +--------+ +--------+------+------+ | Medication Order | MAR | Action | Dose | Rate | Site | | | Action | Date | | | | + +--------+ +--------+------+------+ | docusate sodium (COLACE) | Given | 03/27/19 | 200 mg | | | | capsule 200 mg 200 mg, Oral, | | 19 12:36 | | | | | NIGHTLY, First dose on Sun03/26/18 | | AM PST | | | | | at 2100, Hold for loose stools, | | | | | | | | | | | | | + +--------+ +--------+------+------+ +---+---+ | | | +---+---+ + +-------+ +-------+---+---+ | ePHEDrine (AKOVAZ) 50 mg/mL | Given | 03/26/19 | 25 mg | | | | injection 5-10 mg 5-10 mg, | | 19 10:51 | | | | | Intravenous, EVERY 5 MIN PRN, BP | | AM PST | | | | | decreased more than 20% of | | | | | | | baseline, Starting e 03/26/18 at | | | | | | | 0943, Intra-op | | | | | | + +-------+ +-------+---+---+ +---+---+ | | | +---+---+ + +---------+ + + +---+ | fentaNYL 2 mcg/mL + bupivacaine | New Bag | 03/26/19 | 14 mL/hr | 14 mL/hr | | | 0.125% in saline (PF) at 14 | | 19 5:19 | | | | | mL/hr, EPIDURAL, CONTINUOUS, | | PM PST | | | | | Starting e 03/26/18 at 1000, | | | | | | | Intra-op, Patient-controlled | | | | | | | Bolus Dose (mL): 5, Lockout | | | | | | | Interval (min): 15 | | | | | | + +---------+ + + +---+ + + + + +---+ | Rate/Dose Verify | 03/26/19 | 14 mL/hr | 14 mL/hr | | | | 19 4:00 | | | | | | PM PST | | | | + + + + +---+ | Rate/Dose Verify | 03/26/19 | 14 mL/hr | 14 mL/hr | | | | 19 2:00 | | | | | | PM PST | | | | + + + + +---+ +---+---+ | | | +---+---+ + +-------+ + +---+---+ | HYDROcodone-acetaminophen | Given | 03/27/19 | 1 tablet | | | | (NORCO) 5-325 mg per tablet 1-2 | | 19 9:38 | | | | | tablet 1-2 tablet, Oral, EVERY 6 | | AM PST | | | | | HOURS PRN, Pain, Starting Wed | | | | | | | 03/27/18 at 0023 | | | | | | + +-------+ + +---+---+ +-------+ + +---+---+ | Given | 03/27/19 | 1 tablet | | | | | 19 12:36 | | | | | | AM PST | | | | +-------+ + +---+---+ +---+---+ | | | +---+---+ + +-------+ +--------+---+---+ | ibuprofen (ADVIL,MOTRIN) tablet | Given | 03/27/19 | 600 mg | | | | 600 mg 600 mg, Oral, EVERY 6 | | 19 6:10 | | | | | HOURS PRN, Mild Pain, First line | | PM PST | | | | | agent, Starting 03/26/18 at | | | | | | | 2215, If urine output is less | | | | | | | than 240 mL/8 hours (30 mL/hr) or | | | | | | | if signs of bleeding, contact MD | | | | | | | and hold ibuprofen. May be | | | | | | | administered in conjunction with | | | | | | | acetaminophen as Multimodal Pain | | | | | | | Management., | | | | | | + +-------+ +--------+---+---+ +-------+ +--------+---+---+ | Given | 03/27/19 | 600 mg | | | | | 19 1:20 | | | | | | PM PST | | | | +-------+ +--------+---+---+ | Given | 03/27/19 | 600 mg | | | | | 19 5:37 | | | | | | AM PST | | | | +-------+ +--------+---+---+ +---+---+ | | | +---+---+ + +-------+ +--------+---+---+ | ibuprofen (ADVIL,MOTRIN) tablet | Given | 03/26/19 | 800 mg | | | | 800 mg 800 mg, Oral, EVERY 8 | | 19 7:09 | | | | | HOURS PRN, Mild Pain, First line | | PM PST | | | | | agent, Starting Sun03/26/18 at | | | | | | | 1836, If urine output is less | | | | | | | than 240 mL/8 hours (30 mL/hr) or | | | | | | | if signs of bleeding, contact MD | | | | | | | and hold ibuprofen. May be | | | | | | | administered in conjunction with | | | | | | | acetaminophen as Multimodal Pain | | | | | | | Management., | | | | | | + +-------+ +--------+---+---+ +---+---+ | | | +---+---+ + +---------+ +---+-------+---+ | lactated ringers (LR) infusion | New Bag | 03/26/19 | | 125 | | | at 125 mL/hr, Intravenous, | | 19 3:56 | | mL/hr | | | CONTINUOUS, Starting 03/26/18 | | PM PST | | | | | at 0915, Labor and Delivery | | | | | | + +---------+ +---+-------+---+ +---------+ +---------+-------+---+ | New Bag | 03/26/19 | | 999 | | | | 19 10:47 | | mL/hr | | | | AM PST | | | | +---------+ +---------+-------+---+ | New Bag | 03/26/19 | 999 mLs | 125 | | | | 19 9:15 | | mL/hr | | | | AM PST | | | | +---------+ +---------+-------+---+ +---+---+ | | | +---+---+ + +-------+ +---------+---+---+ | levothyroxine (SYNTHROID) | Given | 03/27/19 | 175 mcg | | | | tablet 175 mcg 175 mcg, Oral, | | 19 6:52 | | | | | DAILY BEFORE BREAKFAST, First | | AM PST | | | | | dose on Sun03/26/18 at 0915, Give | | | | | | | before breakfast., | | | | | | + +-------+ +---------+---+---+ +-------+ +---------+---+---+ | Given | 03/26/19 | 175 mcg | | | | | 19 9:46 | | | | | | AM PST | | | | +-------+ +---------+---+---+ + +---+ | | | + +---+ | miSOPROStol (CYTOTEC) tablet | | | 600 mcg 600 mcg, Oral, PRN, | | | Post- hemorrhage, Starting | | | Sun03/26/18 at 1836, For 1 dose, | | | If general anesthesia give per | | | rectum. May give only after | | | delivery., | | + +---+ | | | + +---+ | miSOPROStol (CYTOTEC) tablet | | | 800 mcg 800 mcg, Rectal, PRN, | | | Post- hemorrhage, Starting | | | Sun03/26/18 at 1836, For 1 dose, | | | If unable to administer orally. | | | May give only after delivery., | | | | | + +---+ | | | + +---+ + +-------+ +------+---+---+ | ondansetron (ZOFRAN) injection | Given | 03/26/19 | 4 mg | | | | 4 mg 4 mg, Intravenous, EVERY 6 | | 19 10:43 | | | | | HOURS PRN, Nausea, Vomiting, | | AM PST | | | | | Starting Sun03/26/18 at 0857, | | | | | | | First line agent, Labor and | | | | | | | Delivery | | | | | | + +-------+ +------+---+---+ +---+---+ | | | +---+---+ + + + + +-------+---+ | oxytocin in saline (PITOCIN) 30 | Rate/Dos | 03/26/19 | 100 | 100 | | | units/500 mL (60 luis fernando-units/mL) | e Change | 19 6:16 | luis fernando-un | mL/hr | | | infusion 0-999 luis fernando-units/min | | PM PST | its/min | | | | (0-999 mL/hr), at 0-999 mL/hr, | | | | | | | Intravenous, TITRATED, Starting | | | | | | | 03/26/18 at 0915, Low Dose | | | | | | | (Cervical Ripening) Management: | | | | | | | Dose 1-4 mU/min. Begin infusion | | | | | | | at 1 mU/min for 60 minutes, | | | | | | | Increase to 2 mU/min for 60 | | | | | | | minutes, Increase to 4 mU/min and | | | | | | | continue at this level until | | | | | | | Foster score of 7 or more. | | | | | | | Maximum dose for cervical | | | | | | | ripening = 4mU/min. Standard | | | | | | | (Augmentation/Induction) | | | | | | | Management: Dose 0-40 mU/min. | | | | | | | Begin infusion at 1-2 mU/minute. | | | | | | | Increase at no greater than 2 | | | | | | | mU/min every 30 minutes, until | | | | | | | adequate labor. Maximum standard | | | | | | | dose for augmentation/induction | | | | | | | = 20 mU/min. Call provider to | | | | | | | increase above 20 mU/min. Do not | | | | | | | increase above 40 mU/min. Do not | | | | | | | increase rate if there is | | | | | | | tachysystole ( > 5 contractions | | | | | | | in 10 minutes averaged over 30 | | | | | | | minutes) or concern regarding | | | | | | | tracing. For tachysystole, | | | | | | | indications or increased | | | | | | | baseline uterine tone, notify | | | | | | | provider and stop or decrease | | | | | | | oxytocin infusion per unit policy | | | | | | | until the indication has ceased. | | | | | | | Restart the infusion per policy | | | | | | | or at 50% or less of the previous | | | | | | | rate. Third Stage | | | | | | | Management/Immediate : | | | | | | | Dose 0-999 mU/min. Vaginal | | | | | | | delivery: After delivery of | | | | | | | anterior shoulder or placenta, | | | | | | | 350 mL/hr x hour, then 100 | | | | | | | mL/hr x 3.5 hours. May stop after | | | | | | | 4 hours post-delivery. Titrate | | | | | | | to control bleeding. May | | | | | | | discontinue if fundus firm, | | | | | | | bladder not distended and patient | | | | | | | tolerating oral fluids and pain | | | | | | | meds. delivery: | | | | | | | Anesthesia will manage oxytocin | | | | | | | intraoperatively. Post anesthesia | | | | | | | care, 350 mL/hr x hour, then | | | | | | | 100 mL/hr x 3.5 hours. May stop | | | | | | | after 4 hours post-delivery. | | | | | | | Titrate to control bleeding. May | | | | | | | discontinue if fundus firm, | | | | | | | bladder not distended and patient | | | | | | | tolerating oral fluids and pain | | | | | | | meds., Use oxytocin for | | | | | | | management of: Third stage, Labor | | | | | | | and Delivery | | | | | | + + + + +-------+---+ + + + + +---+ | Rate/Dose Change | 03/26/19 | 350 | 350 | | | | 19 5:32 | luis fernando-un | mL/hr | | | | PM PST | its/min | | | + + + + +---+ | Rate/Dose Change | 03/26/19 | 10 | 10 mL/hr | | | | 19 4:30 | luis fernando-un | | | | | PM PST | its/min | | | + + + + +---+ +---+---+ | | | +---+---+ + +-------+ +---+---+---+ | pramoxine (PROCTOFOAM) 1% foam | Given | 03/27/19 | | | | | Topical, 3 TIMES DAILY PRN, | | 19 5:37 | | | | | Itching, Hemorrhoids, Starting | | AM PST | | | | | 03/26/18 at 1836, | | | | | | + +-------+ +---+---+---+ +---+---+ | | | +---+---+ + +-------+ +--------+---+---+ | fidelina OLIVO) pads 1 each | Given | 03/26/19 | 1 each | | | | 1 each, Topical, EVERY 1 HOUR | | 19 10:09 | | | | | PRN, Discomfort, Starting Tujuliette | | PM PST | | | | | 03/26/18 at 1836, | | | | | | + +-------+ +--------+---+---+ +---+---+ | | | +---+---+ documented in this encounter
--- OUTSIDE RECORDS SUMMARY | ~2019-08-05 | XMS | Encounter Summary ---
Demographics + + + | Address | [address] | | | [place] [address] | + + + | Home Phone | | + + + | Preferred Language | Unknown | + + + | Marital Status | | + + + | Zoroastrianism Affiliation | Unknown | + + + | Race | Unknown | + + + | Ethnic Group | Unknown | + + + Author + + + | Author | [facility] | | | and [place] | + + + | Organization | [facility] | | | [...] Team Providers + +------+ + | Care Orthopedic Physician Name | Role | Phone | + [...] + + + + | 03/26/ | Anesthesia | [facility] | Edward Bolivar | | | 2019 | Event | [facility] | P, MD [address] | | | | | [address] | [place] | | | | | [place], | [address] | | | | | [place] [address] | [phone] | | | | | [phone] | | | +--------+ + + + + Anesthesia Record + + + + + | Procedure Name | Responsible | Anesthesia Start | Anesthesia Stop Time | | | Anesthesiologist | Time | | + + + + + | NEURAXIAL LABOR | Edward Bolivar, | 03/26/18 1025 | 03/26/18 1732 | | ANALGESIA/ANESTHESIA | MD | | | + + + + + +----+---+ + + | Da | T | Event | Comment | | te | i | | | | | m | | | | | e | | | +----+---+ + + | 01 | 0 | An Checkout | Pre-use anesthesia machine/equipment checkout. | | /0 | 9 | | | | 1/ | 4 | | | | 20 | 0 | | | | 19 | | | | +----+---+ + + | | 0 | Out of OR | | | | 9 | Device | | | | 4 | Start | | | | 4 | | | +----+---+ + + | | 1 | an meño now | Arrive OB, procedure explained, consent | | | 0 | | | | | 1 | | | | | 5 | | | +----+---+ + + | | 1 | | | | | 0 | | | | | 1 | | | | | 7 | | | +----+---+ + + | | 1 | Pre-Procedu | | | | 0 | ral Timeout | | | | 2 | Completed | | | | 3 | | | +----+---+ + + | | 1 | An Start | Room ready, anesthesia equipment checked, essential drugs & | | | 0 | | equipment available. Patient Identity checked, anesthesia plan | | | 2 | | explained and consent obtained. Patient positioned/sitting in OB. | | | 5 | | Monitors applied. Reassessment prior to anesthesia | | | | | induction/procedure. | +----+---+ + + | | 1 | Epi/spinal | | | | 0 | Stop | | | | 2 | | | | | 8 | | | +----+---+ + + | | 1 | Test Dose | | | | 0 | | | | | 3 | | | | | 0 | | | +----+---+ + + | | 1 | Epidural | | | | 0 | Bolus | | | | 3 | | | | | 4 | | | +----+---+ + + | | 1 | Epidural | | | | 0 | Infusion | | | | 4 | Started | | | | 0 | | | +----+---+ + + | | 1 | Out of OR | | | | 0 | Device Stop | | | | 4 | | | | | 1 | | | +----+---+ + + | | 1 | Out of OR | | | | 0 | Device | | | | 5 | Start | | | | 0 | | | +----+---+ + + | | 1 | Out of OR | | | | 4 | Device Stop | | | | 3 | | | | | 6 | | | +----+---+ + + | | 1 | Baby Deliv | | | | 7 | | | | | 3 | | | | | 2 | | | +----+---+ + + | | 1 | An Stop | Patient handed off to recovery nurse. | | | 3 | | | | | 2 | | | +----+---+ + + +------+ | Meds | +------+ + +---------+ | Name | Total | + +---------+ | ePHEDrine | 50 mg | + +---------+ | lidocaine 1.5%-EPINEPHrine | 3 mL | | 1:200,000 (PF) | | + +---------+ | bupivacaine 0.125% (Epidural) | 6 mL | + +---------+ | fentaNYL 2 mcg/mL + bupivacaine | 89.6 mL | | 0.125% in saline (PF) | | + +---------+ | lactated ringers (LR) infusion | 0 mL | + +---------+ + + | No agents on file. | + + + + | No blood administrations on file. | + + +--------+ + + + | Type | Details | Placement | Removal | +--------+ + + + | Periph | 03/26/18; 0905; Left; Distal, | 03/26/18 09 by | 03/27/18 0042 by | | eral | Posterior (dorsal); Wrist; | Devon Lopez RN | Maryjo Dillon RN | | IV | [id number] catheter system; | | | | | 18 gauge; 0; distraction; short | | | | | term use; 03/27/18; 0042 | | | +--------+ + + + | Epidur | 03/26/18; 1028 (created via | 03/26/18 1028 by | 03/26/18 1900 by | | al/Spi | procedure documentation); Patient | Edward Bolivar, | Mari Spivey RN | | nal | seen & examined. ID checked, | MD | | | | procedure explained including | | | | | risks and benefits, all relevant | | | | | questions answer. Consent | | | | | obtained. Timeout performed. | | | | | Patient in sitting position, | | | | | landmarks identified and marked, | | | | | sterile prep and draping. Under | | | | | sterile technique local was | | | | | administered to skin at the L3-4 | | | | | interspace and the Tuohy needle | | | | | advanced. The Tuohy | | | | | incrementally advanced using | | | | | sequential ELSA tests until ELSA | | | | | was noted (depth noted above). | | | | | Epidural catheter was threaded | | | | | (extent noted above) while not | | | | | having a contraction with minimal | | | | | resistance. No blood or CSF was | | | | | noted on aspiration. A test | | | | | dose was administered. After a | | | | | negative finding the catheter was | | | | | bolused after negative | | | | | aspiration. The catheter was | | | | | covered with a transparent | | | | | dressing and the course of the | | | | | catheter taped to the shoulder. | | | | | The patient tolerated the | | | | | procedure well. Blood loss was | | | | | less than 3 mls. ; 03/26/18; 1900 | | | | | (cath tip intact) | | | +--------+ + + + | Urethr | 03/26/18; 1113; indicated for | 03/26/18 1113 by | 03/26/18 1723 by | | al | acute urinary | Devon Lopez RN | Mari Spivey RN | | Cathet | retention/obstruction; All | | | | er | elements; All elements; All | | | | | elements; indwelling single lumen | | | | | catheter; 100% silicone; 14; | | | | | None; 1; 14; 10; none; drainage | | | | | bag to dependent drainage; short | | | | | term use; 03/26/18; 1723 | | | +--------+ + + + [...] +---------+ + + | Blood Pressure | 124/55 | 03/26/2018 2:30 PM | | | | | PST | | + +---------+ + + | Pulse | - | - | | + +---------+ + + | Temperature | - | - | | + +---------+ + + | Respiratory Rate | - | - | | + +---------+ + + | Oxygen Saturation | 100% | 03/26/2018 2:34 PM | | | | | PST | | + +---------+ + + | [...] | + +--------+ + + + | ANE EPIDURAL NOTE | Routin | 03/26/2018 | | Results for this | | | e | 10:41 AM | | procedure are in the | | | | PST | | results section. | + +--------+ + + + documented in this encounter Results Anesthesia Epidural Note (03/26/2018 10:41 AM PST) + + + | Narrative | Performed At | + + + | Edward Bolivar MD 03/26/2018 10:42 Neuraxial Procedure | | | Note 03/26/2018 10:28 Procedure: epidural catheter placement | | | Provider requested procedure: MacCollaugh Indication: labor | | | analgesia Preprocedure check: patient identified, procedure and | | | rescue equipment checked, preevaluation including airway assessment | | | complete, risks/benefits discussed, consent obtained, timeout | | | performed, reassessment prior to procedure and monitors applied | | | Patient position: sitting Preparation: chlorhexidine/isopropyl | | | alcohol, drape, Introducer used: yes Local anesthetic | | | infiltration volume: 3 mL Procedure level: L3-4 Approach: midline | | | Needle: Tuohy Needle size: 17 g Needle length: 3.5 in Loss of | | | resistance to: saline with air bubble Loss of resistance: 8 cm | | | Catheter depth at skin: 12 cm Medication administered through: | | | catheter and incremental injection Negative findings: no blood | | | aspirated, no CSF and no paresthesia Test dose response: negative | | | Attempts: 2 Ease of procedure: easy (very tight interspace) | | | Dressing: transparent dressing and tape Performing provider: KATT, | | | EDWARD Bustamante Comments: Patient seen & examined. ID checked, | | | procedure explained including risks and benefits, all relevant | | | questions answer. Consent obtained. Timeout performed. Patient | | | in sitting position, landmarks identified and marked, sterile prep | | | and draping. Under sterile technique local was administered to | | | skin at the L3-4 interspace and the Tuohy needle advanced. The | | | Tuohy incrementally advanced using sequential ELSA tests until ELSA was | | | noted (depth noted above). Epidural catheter was threaded (extent | | | noted above) while not having a contraction with minimal | | | resistance. No blood or CSF was noted on aspiration. A test | | | dose was administered. After a negative finding the catheter was | | | bolused after negative aspiration. The catheter was covered with a | | | transparent dressing and the course of the catheter taped to the | | | shoulder. The patient tolerated the procedure well. Blood loss | | | was less than 3 mls. Please see anesthesia record or flowsheet | | | for vital sign documentation and see anesthesia record or MAR for | | | all medication documentation. Electronically Signed by: Edward | | | MD Terrance Steen date/time: | | | 03/26/2018 10:41 | | + + + + + | Procedure Note | + + | Edward Bolivar MD - 03/26/2018 10:41 AM PST Neuraxial Procedure Note03/26/2018 | | 10:28Procedure: epidural catheter placementProvider requested procedure: | | MacCollaughIndication: labor analgesiaPreprocedure check: patient identified, procedure | | and rescue equipment checked, preevaluation including airway assessment complete, | | risks/benefits discussed, consent obtained, timeout performed, reassessment prior to | | procedure and monitors appliedPatient position: sittingPreparation: | | chlorhexidine/isopropyl alcohol, drape, Introducer used: yesLocal anesthetic | | infiltration volume: 3 mLProcedure level: L3-4Approach: midlineNeedle: TuohyNeedle size: | | 17 gNeedle length: 3.5 inLoss of resistance to: saline with air bubbleLoss of | | resistance: 8 cmCatheter depth at skin: 12 cmMedication administered through: catheter | | and incremental injectionNegative findings: no blood aspirated, no CSF and no | | paresthesiaTest dose response: negativeAttempts: 2Ease of procedure: easy (very tight | | interspace)Dressing: transparent dressing and tapePerforming provider: EDWARD BOLIVAR | | PComments: Patient seen & examined. ID checked, procedure explained including risks | | and benefits, all relevant questions answer. Consent obtained. Timeout performed. | | Patient in sitting position, landmarks identified and marked, sterile prep and draping. | | Under sterile technique local was administered to skin at the L3-4 interspace and the | | Tuohy needle advanced. The Tuohy incrementally advanced using sequential ELSA tests | | until ELSA was noted (depth noted above). Epidural catheter was threaded (extent noted | | above) while not having a contraction with minimal resistance. No blood or CSF was | | noted on aspiration.A test dose was administered. After a negative finding the catheter | | was bolused after negative aspiration. The catheter was covered with a transparent | | dressing and the course of the catheter taped to the shoulder.The patient tolerated the | | procedure well. Blood loss was less than 3 mls.Please see anesthesia record or | | flowsheet for vital sign documentation and see anesthesia record or MAR for all | | medication documentation. Electronically Signed by: Edward Bolivar MD | | ESig date/time: 03/26/2018 10:41 | |identified and marked, sterile prep and draping. Under sterile technique local was adminis tered to skin at the L3-4 interspace and the Tuohy needle advanced. | | | | The Tuohy incrementally advanced using sequential ELSA tests until ELSA was noted (depth not ed above). Epidural catheter was threaded (extent noted above) while not having a contracti on with minimal resistance. No blood or CSF was noted on aspiration. | | | |A test dose was administered. After a negative finding the catheter was bolused after nega tive aspiration. The catheter was covered with a transparent dressing and the course of the catheter taped to the shoulder. | | | |The patient tolerated the procedure well. Blood loss was less than 3 mls. | | | | | |Please see anesthesia record or flowsheet for vital sign documentation and see anesthesia r ecord or MAR for all medication documentation. | | | |Electronically Signed by: Edward Bolivar MD ESig date/time: 019 10:41 | + + documented in this encounter Visit Diagnoses Not on filedocumented in this encounter Administered Medications + +--------+ +-------+------+------+ | Medication Order | MAR | Action | Dose | Rate | Site | | | Action | Date | | | | + +--------+ +-------+------+------+ | bupivacaine 0.125% injection | Given | 03/26/19 | 6 mLs | | | | EPIDURAL, PRN, Starting Tue | | 19 10:34 | | | | | 03/26/18 at 1034, Anesthesia | | AM PST | | | | | Intra-op | | | | | | + +--------+ +-------+------+------+ +---+---+ | | | +---+---+ + +-------+ +-------+---+---+ | ePHEDrine (AKOVAZ) 50 mg/mL | Given | 03/26/19 | 25 mg | | | | injection PRN, Starting Tue | | 19 10:53 | | | | | 03/26/18 at 1050, Anesthesia | | AM PST | | | | | Intra-op | | | | | | + +-------+ +-------+---+---+ +-------+ +-------+---+---+ | Given | 03/26/19 | 25 mg | | | | | 19 10:50 | | | | | | AM PST | | | | +-------+ +-------+---+---+ +---+---+ | | | +---+---+ + +---------+ + + +---+ | fentaNYL 2 mcg/mL + bupivacaine | New Bag | 03/26/19 | 14 mL/hr | 14 mL/hr | | | 0.125% in saline (PF) at 14 | | 19 5:19 | | | | | mL/hr, EPIDURAL, CONTINUOUS, | | PM PST | | | | | Starting 03/26/18 at 1000, | | | | [...] +-------+---+---+ | lidocaine 1.5%-EPINEPHrine | Given | 03/26/19 | 3 mLs | | | | 1:200,000 (PF) injection | | 19 10:30 | | | | | EPIDURAL, PRN, Starting Mary | | AM PST | | | | | 03/26/18 at 1030, Anesthesia | | | | | | | Intra-op | | | | | | + +-------+ +-------+---+---+ +---+---+ | | | +---+---+ documented in this encounter"
--- OUTSIDE RECORDS SUMMARY | ~2019-08-05 | XMS | Encounter Summary ---
Demographics + + + | Address | [address] | | | [place] [address] | + + + | Home Phone | | + + + | Preferred Language | Unknown | + + + | Marital Status | | + + + | Rastafarian Affiliation | Unknown | + + + | Race | Unknown | + + + | Ethnic Group | Unknown | + + + Author + + + | Author | [facility] | | | and [place] | + + + | Organization | [facility] | | | [...] Team Providers + +------+ + | Care Survey Cad Technician Name | Role | Phone | + +------+ + PCP | Unavailable | + +------+ + Encounter Details +--------+ + + + + | Date | Type | Department | Care Team | Description | +--------+ + + + + | 07/19/ | Hospital | [facility] | Susan Simental | | | 2011 - | Encounter | [facility] | Latonya DO [address] | | | | | [facility] [address] | [facility] | | | 07/21/ | | [place], | [place] [address] | | | 2011 | | [place] [address] | [phone] | | | | | [phone] | | | +--------+ + + + [...] + + documented as of this encounter Plan of Treatment Not on filedocumented as of this encounter Procedures + +--------+ + + + | Procedure Name | Priori | Date/Time | Associated Diagnosis | Comments | | | ty | | | | + +--------+ + + + | HEMOGLOBIN AND | Routin | 07/21/2011 | | Results for this | | HEMATOCRIT | e | 6:33 AM | | procedure are in the | | | | PDT | | results section. | + +--------+ + + + | RUPTURE OF MEMBRANES | Routin | 07/20/2011 | | Results for this | | | e | 12:22 AM | | procedure are in the | | | | PDT | | results section. | + +--------+ + + + documented in this encounter Results Hemoglobin and Hematocrit (07/21/2011 6:33 AM PDT) + + + + + + | Component | Value | Ref Range | Performed | Pathologist | | | | | At | Signature | + + + + + + | Hemoglobin | 9.0 (L) | 11.5 - 16.0 | [facility] | | | | | gm/dL | [facility] | | | | | [facility] | | | | | | [facility] - | | | | | | LABORATORY | | + + + + + + | Hematocrit | 27.0 (L) | 34.0 - 47.0 % | [facility] | | | | | | [facility] | | | | | | [facility] | | | | | | C[facility] - | | | | | | LABORATORY | | + + + + + + + + | Specimen | + + | | + + + + + + + | Performing | Address | City/State/Zipcode | Phone Number | | Organization | | | | + + + + + | [facility] | [address] | [place] | [phone] | | [facility] | | [address] | | | - LABORATORY | | | | + + + + + | [facility] | [address] | [place] | | | [facility] | | [id number] | | | - LABORATORY | | | | + + + + + Rupture of Membranes (07/20/2011 12:22 AM PDT) + + + + + + | Component | Value | Ref Range | Performed | Pathologist | | | | | At | Signature | + + + + + + | Rupture of | POSITIVEComment: | | [facility] | | | | @INTERNAL CONTROL OK?: | | . [facility] | | | Membranes | RED CONTROL LINE | | MEDICAL | | | | APPEARS? Y | | CENTER - | | | | | | LABORATORY | | + + + + + + + + | Specimen | + + | | + + + + + + + | Performing | Address | City/[facility] | Phone Number | | Organization | | | | + + + + + | [facility] | [address] | [place], [place] | [phone] | | [facility] | | [address] | | | - LABORATORY | | | | + + + + + | [facility] | [address] | [place], [place] | | | [facility] | | [address] [place] [address] | | | - LABORATORY | | | | + + + + + documented in this encounter Visit Diagnoses Not on filedocumented in this encounter"
--- OUTSIDE RECORDS SUMMARY | ~2019-08-05 | XMS | Encounter Summary ---
Demographics + + + | Address | [address] | | | [place] [address] | + + + | Home Phone | | + + + | Preferred Language | Unknown | + + + | Marital Status | | + + + | Spiritism Affiliation | Unknown | + + + | Race | Unknown | + + + | Ethnic Group | Unknown | + + + Author + + + | Author | [facility] | | | and [place] | + + + | Organization | [facility] | | [...] Team Providers + +------+ + | Care Deputy Sheriff Generalist/Bailiff Name | Role | Phone | + [...] Closed | Specialty | | Diagnoses | | | | | Services | Services / | Prolonged | Kamille, | | | | Required | | latent phase | Susan Hanks, | | | | | and | of labor | DO [address] | | | | | | [address] | | | | | | | [place], | | | | | | | [place] [address] | | | | | | | Phone: | | | | | | | [phone] | | | | | | | Fax: | | | | | | | [phone] | | +--------+ + + + + + (Routine) +--------+ + + + + + | Status | Reason | Specialty | Diagnoses / | Referred By | Referred To | | | | | Procedures | Contact | Contact | +--------+ + + + + + | Closed | Specialty | Obstetrics | Diagnoses | | | | | Services | and | Prolonged | Kamille, | | | | Required | Gynecology | latent phase | Susan Hanks, | | | | | | of labor | DO [address] | | | | | | [address] | | | | | | | [place], | | | | | | | [place] [address] | | | | | | | Phone: | | | | | | | [phone] | | | | | | | Fax: | | | | | | | [phone] | | +--------+ + + + + + Reason for Visit Auth/Cert +--------+--------+ + [...] + + + + | 07/03/ | Hospital | [facility] | Susan Simental | Prolonged latent | | 2013 - | Encounter | [facility] | DO Latonya [address] | phase of labor | | | | [address] | [address] | (Primary Dx) | | 07/04/ | | [place], [place] | [place] [address] | | | 2013 | | [address] | [phone] | | | | | [phone] | | | +--------+ + + + [...] + + + | Blood Pressure | 118/73 | 07/04/2013 12:00 PM | | | | | PDT | | + + + + + | Pulse | 70 | 07/04/2013 12:00 PM | | | | | PDT | | + + + + + | Temperature | 37 C (98.6 F) | 07/04/2013 12:00 PM | | | | | PDT | | + + + + + | Respiratory Rate | 16 | 07/04/2013 12:00 PM | | | | | PDT | | + + + + + | Oxygen Saturation | 99% | 07/03/2013 1:33 PM | | | | | PDT | | + + + + + | Inhaled Oxygen | - | - | | | Concentration | | | | + + + + + | Weight | 82.1 kg (181 lb) | 07/04/2013 8:00 AM | | | | | PDT | | + + + + + | Height | 162.6 cm (5' 4") | 07/04/2013 8:00 AM | | | | | PDT | | + + + + + | Body Mass Index | 31.07 | 07/04/2013 8:00 AM | | | | | PDT | | + + + + + documented in this encounter Discharge Summaries Susan Simental DO - 07/04/2013 7:08 AM PDTFormatting of this note might be differe nt from the original. Physician Discharge Summary Patient ID: Yosef Otero [id number] 27 y.o. 1985 Admit date: 07/03/2013 Discharge date and time: 07/04/13 Admitting Physician: Susan Simental DO Discharge Physician: Susan Simental DO Admission Diagnoses: Post term Discharge Diagnoses: Same Admission Condition: good Discharged Condition: good Indication for Admission: Yosef was a 27 y/o female who presented at 40w2d in early latent labor. Secondary to advanced cervical dilation decision was made to proceed with am niotomy and Pitocin augmentation. Her surgery had been essentially uncomplicated with excep tion of hypothyroidism and restless leg syndrome Hospital Course: Yosef received epidural for analgesia. Amniotomy was performed with clear fluid noted. Pitocin augmentation was begun and she progressed appropriately throughout e day. She delivered a male infant 9# without complication. Her course was unco mplicated and she was discharged home on PPD#1. Discharge Exam: VSS. Afebrile Gen: NAD. HRRR. LCTA Abd: Soft. NT. FF. Ext: Neg edema b/l LE. Neg calf tenderness Disposition: home Patient Instructions: Current Discharge Medication List START taking these medications Details docusate sodium (COLACE) 100 MG capsule Take 200 mg by mouth Twice daily as needed for Con stipation. Qty: 40 capsule, Refills: 1 ibuprofen (ADVIL,MOTRIN) 800 MG tablet Take 1 tablet by mouth every 8 hours as needed for P ain for 10 days. Qty: 30 tablet, Refills: 1 oxyCODONE-acetaminophen (ENDOCET) 5-325 mg per tablet Take 1 tablet by mouth every 4 hours as needed for Pain. Qty: 20 tablet, Refills: 0 CONTINUE these medications which have NOT CHANGED Details levothyroxine (SYNTHROID, LEVOTHROID) 100 mcg tablet Take 100 mcg by mouth every morning (b efore breakfast). multivitamin tablet Take 1 tablet by mouth Daily. Ranitidine HCl (RANITIDINE 75 PO) Take 1 tablet by mouth. Activity: activity as tolerated, pelvic rest for 6 weeks. Diet: regular diet Follow-up with Dr. Simental in 6 weeks. Signed: Susan Simental DO 07/04/2013 7:08 documented in t his encounter Discharge Instructions Instructions Kacey Mckenzie RN - 07/04/2013 DISCHARGE INSTRUCTIONS Warning Signs Check List Notify your clinician immediately if you are experiencing any of the following: Heavy bleeding from the vagina (blood is bright-red and soaks a pad in an hour or less) Normal bleeding decreases in amount over time and is: Bright-red (lasts two to three days). Pinkish or brown (lasts from about the third day to the tenth day). Creamy or yellow (usually lasts one to two weeks). Discharge from the vagina that has a bad odor. Temperature over 100.4 (38 C) or you feel cold and have the chills (you are david vering). Urination that is painful, difficult, or too frequent. Difficulty having a bowel movement. Painful, very red, and swollen incision or leaking of any fluids. Breasts that are full and or/painful (swollen, hot, tight, itchy, lumpy, shiny, flat nip ples, or sore spots with flu-like symptoms). Pain that becomes worse and unrelieved by medication. Trouble breathing, dizziness, or faintness. Crying spells or mood swings that feel out of control. Pain, redness, warmth or firmness in the lower calf. Activity/Exercise Do not drive while you are taking narcotics. If you had a secion, try driving maneuvers while parked to ensure no increase in incisional pain. Gradually increase your daily activities until you are back to your normal routine. Rest frequently. Remember to continue to drink plenty of fluids and eat frequently if yo u are . Heavy lifting or other strenuous exertion is unlikely to disrupt your incision or lacera tion but it may cause an increase in pain. Your provider will tell you if additional restric tions apply to you . Bowels and Regularity constipation is common; You make take Docusate sodium or Milk of Magnesia to alleviate discomfort Painful bowel movements or rectal pain may result from hemorrhoids; use Tucks and/or to pical treatment like Anusol-HC. Sitz baths can also help Normal Bleeding Vaginal spotting may last up to six weeks. It is important that you change your pad on a regular basis. Your menstrual period may occur as early as six weeks to two months after your delivery. Care of Stitches You should feel less discomfort every day from your stitches. Perineal stitches will dissolve within 2-4 weeks. You may shower or bathe with stitches; drip plain or soapy water over the incision and d ry gently with a clean towel. If you have jose; you may shower, (no tub bathing) and dry gently with a clean towel. If you had any jose that were not removed during your hospitalization they will need to be removed in your provider's office. Steri-strips may fall off on their own or can be removed at post-op visit. Sex/Douching/Tampons Do not place anything in the vagina for the first six weeks after delivery. Your healthcare provider may advise you to wait up to six weeks for intercourse. Once th e bleeding has stopped, it is alright to have intercourse if you feel ready. Keep in mind yo u are at risk of getting . You may find your vagina feels dry, making sex uncomfortable. This can last several colin hs due to changing hormone levels. To help lubricate your vagina, you may purchase a water-s oluble lubricant (e.g., Astroglide) from your local drug store. This will help make interco urse more comfortable. documented in this encounter Medications at Time [...] + + | docusate sodium | Take 200 mg by mouth | 40 | 1 | 07/05/19 | | | (COLACE) 100 MG | Twice daily as | capsule | | 14 | 9 | | capsule | needed for | | | | | | | Constipation. | | | | | + + + +---------+ + + | ibuprofen | Take 1 tablet by | 30 | 1 | 07/05/19 | | | (ADVIL,MOTRIN) 800 | mouth every 8 hours | tablet | | 14 | 4 | | MG tablet | as needed for Pain | | | | | | | for 10 days. | | | | | + + + +---------+ + + | | Take 1 tablet by | 20 | 0 | 07/05/19 | | | oxyCODONE-acetaminop | mouth every 4 hours | tablet | | 14 | 9 | | hen (ENDOCET) 5-325 | as needed for Pain. | [...] + documented as of this encounter Progress Kacey Kerr RN - 07/04/2013 11:00 AM PDTNursing baby with good latch noted. Denies complaints of pain at this time. Electronically signed by Kacey Mckenzie RN at 014 11:11 AM Kacey Youssef RN - 07/04/2013 8:00 AM PDTAssessment completed. C/o p ain 07/03, medicated with ibuprofen per patients request. States she would like to go home to day after baby's testing at 24 hours of age. Will call prescriptions to [facility] and start discharge teaching. Miguelina Rogers RN - 07/04/2013 1:32 AM PDTReports legs now no longer having numbness aft er epidural, able to ambulate independently to BR. States nursing well. Reza Pickens RN - 07/03/2013 4:00 PM PDTPatient's uterus deviates to the right above the umbilicus. Assisted patient to the athroom using the "steady" where she was able to void. Return patient to bed. Uterus now fir m with massage at u-1. Bleeding is light to moderate. Susan Pina DO - 07/03/2013 12:34 PM PDTPt seen and examined. Pain had increased with initiation of Pitocin and therefore it was not increased until epidural was bolused. Ctx still not graphing well. IUPC placed without difficulty SVE 7.5/90/-1. Anterior and stretchy. FHTs 140s/mod variability/+accels/no decels TOCO irreg. Pt now comfortable with epidural. Will have RN actively manage Pitocin per protocol. Anti cipate . Continue routine care. Electronically signed by Susan Simental DO at 0 07/03/2013 12:36 PM Susan Pina DO - 07/03/2013 9:05 AM PDTPt comfortable with epidural Ctx not graphing well. SVE 7/80/-1. Anterior. Soft. FHTs 140s/mod variability/+accels/no decels Continue expectant management at this time. If no cervical change with next exam will begi n Pitocin per protocol. 9:0 6 AM Reza Pickens, LIDIA - 07/03/2013 7:05 AM PDTAssumed care of patient with precepting nurse, Shwetha Murray RN. Tdocumented in this encounter Plan of Treatment + + +--------+ + + | Name | Type | Priori | Associated Diagnoses | Order Schedule | | | | ty | | | + + +--------+ + + | Amb referral to | Outpatient | Routin | Prolonged latent | 1 Occurrences | | | Referral | e | phase of labor | starting 07/03/2013 | | | | | | until 07/03/2014 | + + +--------+ + + | Ambulatory referral | Outpatient | Routin | Prolonged latent | 1 Occurrences | | to | Referral | e | phase of labor | starting 07/03/2013 | | | | | | until 07/03/2014 | + + +--------+ + + documented as of this encounter Procedures + +--------+ + + + | Procedure Name | Priori | Date/Time | Associated Diagnosis | Comments | | | ty | | | | + +--------+ + + + | CBC NO DIFFERENTIAL | Routin | 07/04/2013 | | Results for this | | | e | 6:25 AM | | procedure are in the | | | | PDT | | results section. | + +--------+ + + + | CULTURE, STREP GROUP | Routin | 06/06/2013 | | Results for this | | B | e | | | procedure are in the | | | | | | results section. | + +--------+ + + + | EXTERNAL LAB: | Routin | 01/06/2013 | | Results for this | | HEMOGLOBIN | e | | | procedure are in the | | | | | | results section. | + +--------+ + + + | EXTERNAL LAB: | Routin | 12/27/2012 | | Results for this | | HEMATOCRIT | e | | | procedure are in the | | | | | | results section. | + +--------+ + + + | C. TRACHOMATIS AND | Routin | 12/27/2012 | | Results for this | | N. GONORRHOEAE, NAAT | e | | | procedure are in the | | | | | | results section. | + +--------+ + + + | RUBELLA AB, IGG | Routin | 12/27/2012 | | Results for this | | | e | | | procedure are in the | | | | | | results section. | + +--------+ + + + | RAPID PLASMA REAGIN, | Routin | 12/27/2012 | | Results for this | | QUAL | e | | | procedure are in the | | | | | | results section. | + +--------+ + + + | HEPATITIS B SURFACE | Routin | 12/27/2012 | | Results for this | | AG | e | | | procedure are in the | | | | | | results section. | + +--------+ + + + | PLATELET COUNT | Routin | 12/27/2012 | | Results for this | | | e | | | procedure are in the | | | | | | results section. | + +--------+ + + + | ANTIBODY SCREEN | Routin | 12/27/2012 | | Results for this | | | e | | | procedure are in the | | | | | | results section. | + +--------+ + + + | ABO RH | Routin | 01/11/2011 | | Results for this | | | e | | | procedure are in the | | | | | | results section. | + +--------+ + + + documented in this encounter Results CBC no Differential (07/04/2013 6:25 AM PDT) + + + + + + | Component | Value | Ref Range | Performed | Pathologist | | | | | At | Signature | + + + + + + | WBC | 8.7 | 4.0 - 11.0 K/uL | [facility] | | | | | | [facility] | | | [facility] | | | | | | [facility] | | + + + + + + | RBC | 4.04 | 3.70 - 5.20 | [facility] | | | | | M/uL | [facility] | | | | | | [facility] | | [facility] - | | | | | | LAB[facility]ATORY | | + + + + + + | Hemoglobin | 10.2 (L) | 11.5 - 16.0 | [facility] | | | | | g/dL | [facility] | | | | | | [facility] | | | | [facility] - | | | | | | LAB[facility]ATORY | | + + + + + + | Hematocrit | 31.2 (L) | 34.0 - 47.0 % | [facility] | | | | | | [facility] | | | | | | [facility] | | | | [facility] - | | | | | | LAB[facility]ATORY | | + + + + + + | MCV | 77.2 (L) | 83.0 - 101.0 fL | [facility] | | | | | | [facility] | | | | | | [facility] | | | | | [facility] - | | | | | | LAB[facility]ATORY | | + + + + + + | MCH | 25.3 (L) | 28.0 - 35.0 pg | [facility] | | | | | | [facility] | | | | | | [facility] | | | | | [facility] - | | | | | | LAB[facility]ATORY | | + + + + + + | MCHC | 32.8 | 32.0 - 36.0 | [facility] | | | | | g/dL | [facility] | | | | | | [facility] | | | | | | [facility] - | | | | | | LABORATORY | | + + + + + + | RDW-CV | 13.9 | <15.0 % | [facility] | | | | | | [facility] | | | | | | [facility] | | | | | | [facility] - | | | | | | LABORATORY | | + + + + + + | Platelet | 185 | 140 - 440 K/uL | [facility] | | | Count | | | [facility] | | | | | | [facility] | | | | | [facility] - | | | | | | LABORATORY | | + + + + + + | MPV | 8.1 | fL | [facility] | | | | | [...] [address] | [place] | [phone] | | [facility] | | [address] | | | - LABORATORY | | | | + + + + + | [facility] [address] | [address] | [place], [place] | | | [facility] | | [address], [facility] | | | - LABORATORY | | | | + + + + + Culture,Strep Group B (06/06/2013) + + + + + + | Component | Value | Ref Range | Performed | Pathologist | | | | | At | Signature | + + + + + + | GBS result, | Negative | Negative | | | | External | | | | | + + + + + + + + | Specimen | + + | Specimen from | | genital system | | (specimen) - | | Vagina/Rectum | + + External Lab: Hemoglobin (01/06/2013) + +-------+ + + + | Component | Value | Ref Range | Performed | Pathologist | | | | | At | Signature | + +-------+ + + + | HGB, | 12.8 | | | | | External | | | | | + +-------+ + + + Rubella Ab, IgG (12/27/2012) + +--------+ + + + | Component | Value | Ref Range | Performed | Pathologist | | | | | At | Signature | + +--------+ + + + | Rubella, | Immune | | | | | External | | | | | + +--------+ + + + + + | Specimen | + + | Blood specimen | | (specimen) | + + Rapid Plasma Reagbrandt Qual (12/27/2012) + + + + + + | Component | Value | Ref Range | Performed | Pathologist | | | | | At | Signature | + + + + + + | RPR, | Non-Reactive | Non-Reactive | | | | External | | | | | + + + + + + + + | Specimen | + + | Blood specimen | | (specimen) | + + Hepatitis B Surface Ag (12/27/2012) + + + + + + | Component | Value | Ref Range | Performed | Pathologist | | | | | At | Signature | + + + + + + | HBsAg, | Non-Reactive | Non-Reactive | | | | External | | | | | + + + + + + + + | Specimen | + + | Blood specimen | | (specimen) | + + C. trachomatis and N. gonorrhoeae, NAAT (12/27/2012) + + + + + + | Component | Value | Ref Range | Performed | Pathologist | | | | | At | Signature | + + + + + + | Chlamydia, | Negative | Negative | | | | External | | | | | + + + + + + + + | Specimen | + + | Specimen from | | genital system | | (specimen) | + + External Lab: Hematocrit (12/27/2012) + +-------+ + + + | Component | Value | Ref Range | Performed | Pathologist | | | | | At | Signature | + +-------+ + + + | HCT, | 36.9 | | | | | External | | | | | + +-------+ + + + Platelet Count (12/27/2012) + +-------+ + + + | Component | Value | Ref Range | Performed | Pathologist | | | | | At | Signature | + +-------+ + + + | PLT, | 287 | | | | | External | | | | | + +-------+ + + + + + | Specimen | + + | Blood specimen | | (specimen) | + + Antibody Screen (12/27/2012) + + + + + + | Component | Value | Ref Range | Performed | Pathologist | | | | | At | Signature | + + + + + + | Antibody | Negative | Negative | | | | Screen, | | | | | | External | | | | | + + + + + + + + | Specimen | + + | Blood specimen | | (specimen) | + + ABO Rh (01/11/2011) + + + + + + | Component | Value | Ref Range | Performed | Pathologist | | | | | At | Signature | + + + + + + | ABORH | B Positive | | | | | EXTERNAL | | | | | + + + + + + + + | Specimen | + + | Blood specimen | | (specimen) | + + documented in this encounter Visit Diagnoses + + | Diagnosis | + + | Prolonged latent phase of labor - Primary Primary uterine inertia, unspecified as to | | episode of care | + + documented in this encounter Administered Medications + +--------+ +------+------+------+ | Medication Order | MAR | Action | Dose | Rate | Site | | | Action | Date | | | | + +--------+ +------+------+------+ | benzocaine 20%-menthol | Given | 07/04/19 | | | | | (DERMOPLAST) topical spray | | 14 4:03 | | | | | Topical, EVERY 6 HOURS PRN, Pain, | | PM PDT | | | | | Starting Lisa 07/03/13 at 1538, | | | | | | | | | | | | | + +--------+ +------+------+------+ +---+---+ | | | +---+---+ + +-------+ +--------+---+---+ | docusate sodium (COLACE) | Given | 07/04/19 | 200 mg | | | | capsule 200 mg 200 mg, Oral, | | 14 8:52 | | | | | NIGHTLY, First dose on Lisa | | PM PDT | | | | | 07/03/13 at 2100, Hold for loose | | | | | | | stools, | | | | | | + +-------+ +--------+---+---+ +---+---+ | | | +---+---+ + + + + + +---+ | fentaNYL 2 mcg/mL-bupivacaine | Rate/Dos | 07/04/19 | 15 mL/hr | 15 mL/hr | | | 0.125%-NaCl 0.9% epidural at 12 | e Change | 14 12:15 | | | | | mL/hr, EPIDURAL, CONTINUOUS, | | PM PDT | | | | | Starting [facility] 07/03/13 at 0745, | | | | | | | Labor and Delivery, | | | | | | | Patient-controlled Bolus Dose | | | | | | | (mL): 5, Lockout Interval (min): | | | | | | | 20 | | | | | | + + + + + +---+ +---------+ + + +---+ | New Bag | 07/04/19 | 12 mL/hr | 12 mL/hr | | | | 14 7:45 | | | | | | AM PDT | | | | +---------+ + + +---+ +---+---+ | | | +---+---+ + +-------+ +---------+---+---+ | HYDROcodone-acetaminophen | Given | 07/05/19 | 2 | | | | (NORCO) 5-325 mg per tablet 1-2 | | 14 2:31 | tablets | | | | tablet 1-2 tablet, Oral, EVERY 4 | | PM PDT | | | | | HOURS PRN, Pain, Starting Lisa | | | | | | | 07/03/13 at 1538, If ineffective | | | | | | | or not tolerated, use oxycodone | | | | | | | if ordered., | | | | | | + +-------+ +---------+---+---+ +-------+ + +---+---+ | Given | 07/05/19 | 2 | | | | | 14 9:12 | tablets | | | | | AM PDT | | | | +-------+ + +---+---+ | Given | 07/04/19 | 1 tablet | | | | | 14 8:55 | | | | | | PM PDT | | | | +-------+ + +---+---+ +---+---+ | | | +---+---+ + +-------+ +--------+---+---+ | ibuprofen (ADVIL,MOTRIN) tablet | Given | 07/05/19 | 800 mg | | | | 800 mg 800 mg, Oral, EVERY 8 | | 14 8:01 | | | | | HOURS PRN, Pain, Starting Lisa | | AM PDT | | | | | 07/03/13 at 1538, If urine output | | | | | | | is less than 240 mL/8 hours (30 | | | | | | | mL/hr) or if signs of bleeding, | | | | | | | contact MD and hold ibuprofen., | | | | | | | | | | | | | + +-------+ +--------+---+---+ +-------+ +--------+---+---+ | Given | 07/05/19 | 800 mg | | | | | 14 12:18 | | | | | | AM PDT | | | | +-------+ +--------+---+---+ | Given | 07/04/19 | 800 mg | | | | | 14 4:03 | | | | | | PM PDT | | | | +-------+ +--------+---+---+ +---+---+ | | | +---+---+ + +---------+ +--------+-------+---+ | lactated ringers (LR) 1,000 mL | New Bag | 07/04/19 | 1,000 | 999 | | | bolus 1,000 mL, Intravenous, | | 14 7:23 | mLs | mL/hr | | | Administer over 2 Hours, ONCE | | AM PDT | | | | | PRN, For SBP < 90mmHg, Starting | | | | | | | Lisa 07/03/13 at 0727, For 1 dose, | | | | | | | Labor and Delivery | | | | | | + +---------+ +--------+-------+---+ +---+---+ | | | +---+---+ + +---------+ +--------+-------+---+ | lactated ringers (LR) infusion | New Bag | 07/04/19 | 1,000 | 100 | | | at 100 mL/hr, Intravenous, | | 14 11:04 | mLs | mL/hr | | | CONTINUOUS, Starting Lisa 07/03/13 | | AM PDT | | | | | at 0730 | | | | | | + +---------+ +--------+-------+---+ + + +---------+-------+---+ | Rate/Dose Change | 07/04/19 | 400 mLs | 125 | | | | 14 8:01 | | mL/hr | | | | AM PDT | | | | + + +---------+-------+---+ +---+---+ | | | +---+---+ + +-------+ +---+---+---+ | lanolin ointment Topical, PRN, | Given | 07/04/19 | | | | | Dry Skin, for moist wound | | 14 4:03 | | | | | healing, Starting Sun07/03/13 at | | PM PDT | | | | | 1538, Apply to nipples. May keep | | | | | | | at bed side., | | | | | | + +-------+ +---+---+---+ +---+---+ | | | +---+---+ + +-------+ +------+---+---+ | ondansetron (ZOFRAN) injection | Given | 07/04/19 | 4 mg | | | | 4 mg 4 mg, Intravenous, EVERY 6 | | 14 9:01 | | | | | HOURS PRN, Nausea, Vomiting, | | AM PDT | | | | | Starting Lisa 07/03/13 at 0701, | | | | | | | First line agent, | | | | | | + +-------+ +------+---+---+ +---+---+ | | | +---+---+ + + + + +---------+---+ | oxytocin in saline (PITOCIN) 30 | Rate/Dos | 07/04/19 | 2 | 2 mL/hr | | | units/500 mL (60 luis fernando-units/mL) | e Change | 14 1:35 | luis fernando-un | | | | infusion 0-999 luis fernando-units/min | | PM PDT | its/min | | | | (rounded to 0-999 mL/hr), at | | | | | | | 0-999 mL/hr, Intravenous, | | | | | | | TITRATED, Starting Lisa 07/03/13 at | | | | | | | 0730, Low Dose (Cervical | | | | | | | Ripening) Management: Dose 1-4 | | | | | | | mU/min. Begin infusion at 1 | | | | | | | mU/min for 60 minutes, Increase | | | | | | | to 2 mU/min for 60 minutes, | | | | | | | Increase to 4 mU/min and continue | | | | | | | at this level until Foster score | | | | | | | of 7 or more. Maximum dose for | | | | | | | cervical ripening = 4mU/min. | | | | | | | Standard (Augmentation/Induction) | | | | | | [...] | | increase above 40 mU/min. Do | | | | | | | not increase rate if there is | | [...] | | | | Dose 0-999 mU/min. After delivery | | | | | | | of anterior shoulder or | | | | | | | placenta, titrate to control | | | | | | | bleeding. May discontinue if | | | | | | | fundus firm, bladder not | | | | | | | distended and patient tolerating | | | | | | | oral fluids and pain meds., | | | | | | | Initiate oxytocin after delivery | | | | | | | of anterior shoulder or placenta | | | | | | | for third stage management: yes | | | | | | + + + + +---------+---+ + + + +---------+---+ | Rate/Dose Change | 07/04/19 | 4 | 4 mL/hr | | | | 14 12:38 | luis fernando-un | | | | | PM PDT | its/min | | | + + + +---------+---+ | New Bag | 07/04/19 | 2 | 2 mL/hr | | | | 14 11:05 | luis fernando-un | | | | | AM PDT | its/min | | | + + + +---------+---+ +---+---+ | | | +---+---+ documented in this encounter
--- NOTE | 2019-08-07 10:02 | PR ---
[facility] [address] [facility] [place], [place] [address] Signed PP Progress Notes Datetime Report Generated by JAELYN: 08/07/2019 10:02 SUBJECTIVE: [id number] Pain: Within normal limits Vital Signs: [id number] Vital Signs: Reviewed; Within Normal Limits EXAM: [id number] Cardiovascular: Not Done Respiratory: Not Done Abdomen/Uterus: Abnormal Lochia: Normal Vulva/Perineum: Not Done Breasts: Not Done CVA Tenderness: Not Done Extremities: Normal Incision: Not Applicable Progress: Normal Exam Comments: Fundus firm, NT @ U-1. H/H 8.9/26.8, WBC 8.2, plat 221k IMPRESSION/PLAN/PROCEDURES: [id number] Impression: Normal progression Plan: Discharge Procedures: None Progress Notes: Doing well. She is ready for D/C. Signing Physician: Sameera Nance MD Copies: ~ *Electronically Signed* 08/07/19 1002 SAMEERA NANCE MD PATIENT NAME: ISAAC VALENZUELA PROGRESS NOTE DATE OF : 81 PHYSICIAN: SAMEERA NANCE MD RPT #: [id number] REPORT IS CONFIDENTIAL AND NOT TO BE RELEASED WITHOUT AUTHORIZATION
== END 2019-08-07 10:42 | disposition home or self-care (01) | DRG 807 ==
LOC: FBCO 23:48 → FBC 08-06 00:01
PROVIDERS: ADMIT Obstetrics & Gynecology
PROC: 10E0XZZ Delivery of Products of Conception, External Approach (ICD-10-PCS; principal; 2019-08-06)
PROC: 0KQM0ZZ Repair Perineum Muscle, Open Approach (ICD-10-PCS; 2019-08-06)
PROC: 10907ZC Drainage of Amniotic Fluid, Therapeutic from Products of Conception, Via Natural or Artificial Opening (ICD-10-PCS; 2019-08-06)
PROC: 3E0R3BZ Introduction of Anesthetic Agent into Spinal Canal, Percutaneous Approach (ICD-10-PCS; 2019-08-06)
PROC: 00HU33Z Insertion of Infusion Device into Spinal Canal, Percutaneous Approach (ICD-10-PCS; 2019-08-06)
DX: O43.113 Circumvallate placenta, third trimester (principal); Z37.0 Single live birth; Z3A.39 39 weeks gestation of pregnancy; O99.284 Endocrine, nutritional and metabolic diseases complicating childbirth; E03.9 Hypothyroidism, unspecified; O70.1 Second degree perineal laceration during delivery; O99.89 Other specified diseases and conditions complicating pregnancy, childbirth and the puerperium; M06.9 Rheumatoid arthritis, unspecified; Z79.52 Long term (current) use of systemic steroids; Z79.899 Other long term (current) drug therapy
CPT/HCPCS: 01960; 36415; 85027; A9270; J2590; J2795; J3010; J7121